=== PATIENT | female | born 1940 | race Caucasian/White ===

== ENCOUNTER 2023-05-09 09:29 | Inpatient (IN) | payer OTHER, SELFPAY ==
[2023-05-09] VITALS (11 sets, daily range): BP systolic 136–175; BP diastolic 55–82; PULSE 70–85; RESP 18–32; TEMP 35.9–36.9; O2SAT 93–99; BMI 39.3; BMI 38.8
--- NOTE | 2023-05-09 09:55 | EKG12_ITS ---
Test Reason : Blood Pressure : / mmHG Vent. Rate : 069 BPM Atrial Rate : 069 BPM P-R Int : 168 ms QRS Dur : 088 ms QT Int : 408 ms P-R-T Axes : 049 009 075 degrees QTc Int : 437 ms Normal sinus rhythm with sinus arrhythmia Normal ECG Confirmed by MITESH CHAVEZ, SILAS ([id number]), assignment editor AYALA REESE ([id number]) on 05/10/2023 9:13:48 AM Referred By: RACQUEL Confirmed By:SILAS SAGASTUME MD
--- NOTE | 2023-05-09 09:55 | RAD_ITS ---
STUDY: X-RAY CHEST REASON FOR EXAM: Female, 82 years old. Tachypnea, dyspnea, bilateral rales and lymphedema TECHNIQUE: PA and lateral views of the chest. COMPARISON: Comparison is made with prior study dated November 13, 2016. FINDINGS: EKG electrodes are seen. There is a large left pleural effusion with atelectasis at the left lung base. There is shift of the heart and mediastinum towards the right side of midline. Normal size heart. Normal mediastinum and george. Normal visualized pulmonary arteries. Normal visualized aortic arch and descending thoracic aorta. There are diffuse degenerative changes of the visualized thoracic spine. Levoscoliosis of the thoracic lumbar spine. Normal visualized ribs, clavicles, and shoulders. There is no demonstrated abnormality of the visualized soft tissue structures of the upper abdomen. RAD/Chest PA and Lateral IMPRESSION: Large left pleural effusion with shift of the heart and mediastinum towards the right hemithorax. Electronically Signed: Geovanny Davis MD at 11:00 EDT ,
--- NOTE | 2023-05-09 09:56 | EDS_ITS ---
HPI History of Present Illness Chief Complaint: Shortness of Breath Informant: patient, spouse/S.O. and family Onset/Context/Timing Onset: Weeks (one) Context: sudden Timing: Continuous and Waxes and wanes Quality: Positive for Dyspnea on exertion, Orthopnea and Wheezing; Negative for PND Current Severity: Mild Maximum Severity: Severe Worsened by: Exertion and Lying flat Relieved by: Nothing Associated Symptoms cough; Negative for rhinorrhea, post nasal drip, ear pain, fever, sore throat, subjective, chills, sweats, clear sputum, white sputum, yellow sputum or green sputum Chest Pain: Positive for None Narrative Narrative: Patient is a 82-year-old woman who is hard of hearing and not a good informant. Family is vague and even when asked specific questions she could not answer with any great detail. Her shortness of breath apparently started this past week. There is been audible wheezing. She has slept in a lazy boy for the last 10 months. She has had increased swelling for the past several weeks of her lower extremity. She cannot walk far without having to stop. She denies chest discomfort of any type. There is no history of PE or DVT. There is been no documented fever and she denies subjective fever or chills. She denies upper respiratory symptoms. She does have a history of hypothyroidism. Family raise concern that the thyroid medicine may not be working. There is been no weight loss. There is no complaint of headache, visual, ocular auditory symptoms. Patient denies GI symptoms. Patient denies urologic symptoms. Patient does have neuropathy of her feet. PE Risk Factors: Negative for Cancer, OCP + Smoking + > 35, Prior DVT or PE, Recent immobilization, Recent surgery or Recent travel Prior similar symptoms: No Recent Illness/Hospitalization: No PFSH PFSH Home Medications atenolol 25 mg tablet (Tenormin) 37.5 mg PO BID 08/13/16 [History Last Taken 11/15/16 05:00] clorazepate dipotassium 7.5 mg tablet 0.5 tab PO QHS PRN Sleep 08/13/16 [History Last Taken 11/15/16 05:00] hydrochlorothiazide 12.5 mg capsule 12.5 mg PO DAILY 08/13/16 [History Last Taken Unknown] levothyroxine 75 mcg tablet (Levoxyl) 75 mcg PO MOTUTHFRSA 08/13/16 [History Last Taken Unknown] nifedipine 30 mg tablet,extended release 24 hr 30 mg PO QHS 08/13/16 [History Last Taken Unknown] nifedipine 60 mg tablet,extended release 24 hr 60 mg PO DAILY 08/13/16 [History Last Taken 11/15/16 05:00 60 mg] nortriptyline 25 mg capsule 25 mg PO QHS 08/13/16 [History Last Taken Unknown] nystatin 100,000 unit/gram topical powder (Nyamyc) 1 applic topical PRN PRN SKIN IRRITATION 08/13/16 [History Last Taken Unknown] albuterol sulfate 90 mcg/actuation aerosol inhaler (ProAir HFA) 2 puff inhalation Q6H PRN PRN Asthma 11/12/16 [History Last Taken Unknown] oxycodone-acetaminophen 5 mg-325 mg tablet 1 tab PO Q4H PRN PRN Pain ##30 11/15/16 [Rx Last Taken Unknown] potassium chloride 10 mEq tablet,extended release(part/cryst) 10 meq PO UD 11/15/16 [History Last Taken 11/15/16 05:00] tamsulosin 0.4 mg capsule 0.4 mg PO DAILY@1730 ##14 11/16/16 [Rx Last Taken Unknown] Allergy/AdvReac Type Severity Reaction Status Date / Time amlodipine Allergy TACHYCARDIA Verified 11/12/16 09:59 AND HYPERTENSION losartan Allergy Swelling Verified 11/12/16 09:59 metoprolol Allergy Swelling Verified 11/12/16 09:59 Penicillins [PCN] Allergy Unknown Verified 11/12/16 09:59 diltiazem [From Cardizem] AdvReac Unknown Verified 11/12/16 09:59 olmesartan [From Benicar] AdvReac Unknown Verified 11/12/16 09:59 verapamil AdvReac Unknown Verified 11/12/16 09:59 Social History (Updated 05/09/23 @ 10:[address] Heath Chin MD) household members: spouse and family Smoking Status: Never smoker substance use type: does not use ROS ROS ED Constitutional Constitutional ED: Denies chills, fever(s), sweats or weight loss Eyes Eyes: Denies blurry vision, change in vision or diplopia ENT ENT ED: Denies ear pain, rhinorrhea or sore throat Cardiovascular Cardiovascular: Reports orthopnea; Denies chest pain, palpitations, paroxysmal nocturnal dyspnea or racing heartbeat Respiratory/Chest Respiratory/Chest: Reports cough, dyspnea, dyspnea on exertion and orthopnea; Denies paroxysmal nocturnal dyspnea or sputum Gastrointestinal Gastrointestinal: Denies abdominal pain, constipation, diarrhea, melena, nausea or vomiting Genitourinary Genitourinary ED: Denies dysuria, hematuria or urinary frequency Musculoskeletal Musculoskeletal: Denies arthralgias, back pain, myalgias or neck pain Integumentary Denies rash Neurologic Neurologic: Reports other Details: Peripheral neuropathy of lower extremity ; Denies headache(s), paresthesias or weakness Psychiatric Psychiatric: Reports anxiety and depression Endocrine Endocrinology: Denies cold intolerance Hematologic/Lymphatic Hematologic/Lymphatic: Denies easy bleeding or easy bruising EXAM Physical Exam Const Vital Signs: 05/09/23 09:30 05/09/23 09:42 05/09/23 09:42 Temperature 96.7 F L 98.5 F Temperature Source Temporal Temporal Pulse Rate 74 73 71 Respiratory Rate 20 H 30 H 30 H Respiratory Effort Respiratory Pattern Blood Pressure 156/55 H 175/82 H 175/82 H Blood Pressure Mean 88 113 113 Pulse Ox 95 95 95 Oxygen Delivery Method Room Air Room Air Room Air 05/09/23 10:11 05/09/23 10:12 05/09/23 11:21 Temperature Temperature Source Pulse Rate 70 78 Respiratory Rate 22 H 26 H Respiratory Effort Short of Breath Respiratory Pattern Tachypnea Blood Pressure 153/67 H 162/70 H Blood Pressure Mean 95 100 Pulse Ox 97 94 Oxygen Delivery Method Room Air Room Air Room Air Positive well nourished, well developed and obese Constitutional Narrative: Patient is tachypneic. Her respiratory rate increases with conversation. There may be slight use of accessory muscles with conversation. General Appearance ED: well developed and pallor Nutritional Appearance: obese HEENT Reports moist mucous membranes HEENT Narrative: Head is normocephalic. Ears normal. Nares patent. Posterior pharynx is normal. atraumatic Eyes PERRL and EOMs intact bilaterally General Eye ED: Negative for pale conjunctiva or scleral icterus Neck no lymphadenopathy, supple, no meningeal signs and no JVD Resp No normal respiratory effort and No clear to auscultation bilaterally Auscultation: rales right mid and lower and left lower and diminished lung sounds; Negative for rhonchi or wheezes Cardio regular rate, regular rhythm, S1 normal heart sound, S2 normal heart sound and no murmurs GI non-tender, non-distended and no masses Auscultation: normoactive bowel sounds Back/Spine no CVA tenderness and normal to inspection General Back: Negative for tenderness Extremity Negative for normal to inspection Extremity Narrative: Tenderness lower extremity exam to neuropathy. General Extremety ED: Yes edema and tenderness General Extremity: edema Neuro oriented x3, CN's II-XII intact bilaterally and no sensory deficits noted Neuro Narrative: Hard of hearing Ximena Coma Scale: document GCS findings Spontaneous Obeys Commands Oriented 15 Sensorium / Orientation: alert, oriented to person, oriented to place and oriented to time Speech: speech normal Psych Mood & Affect: depressed Skin no wounds and skin turgor normal General Skin Exam: pallor; Negative for jaundice Lesions: no lesions Rashes: no rashes MDM MDM MDM Narrative Medical decision making narrative: With shortness of breath over the past week, orthopnea, pedal edema and bilateral rales need to evaluate for cardiac ischemia and congestive heart failure. Also need to evaluate for exacerbation of hypothyroidism. The swelling of lower extremity exam a be due to the nifedipine which is a known nilam e effect. Since patient appears pale will obtain CBC to assess H&H as well as white count. Lab Data Attestation: I reviewed the patient's lab results. Lab results narrative: CBC is unremarkable. Patient is not anemic basic metabolic panel is remarkable for hyponatremia. Last sodium obtained was 2017. BUN and creatinine are normal. Transaminases are normal. BNP is slightly elevated 133.5. Labs: Laboratory Results - last 24 hr 05/09/23 09:55 WBC 6.7 RBC 5.41 H Hgb 15.4 H Hct 45.4 MCV 83.9 MCH 28.5 MCHC 33.9 RDW Std Deviation 39.3 RDW Coeff of Mariaelena 12.8 Plt Count 367 MPV 8.5 Immature Gran % (Auto) 0.400 Neut % (Auto) 63.4 Lymph % (Auto) 10.3 L Cole % (Auto) 21.6 H Eos % (Auto) 3.0 Baso % (Auto) 1.3 H Absolute Neuts (auto) 4.3 Absolute Lymphs (auto) 0.69 L Nucleated RBC % 0 Sodium 126 L Potassium 4.2 Chloride 95 L Carbon Dioxide 25.0 Anion Gap 6 BUN 12 Creatinine 0.88 Estim Creat Clear Calc 36.62 Est GFR (MDRD) Af Amer 79 Est GFR (MDRD) Non-Af 65 BUN/Creatinine Ratio 13.6 Glucose 99 Calcium 8.7 Total Bilirubin 0.60 AST 20 ALT 30 Alkaline Phosphatase 101 Troponin I High Sens 13 B-Natriuretic Peptide 133.5 H Total Protein 7.5 Albumin 2.7 L Globulin 4.8 H Albumin/Globulin Ratio 0.6 L TSH 2.99 Radiography Chest X-Ray - ED: 2 View and Read by ED Physician (Patient has a large left pleural effusion. Suspect this is the cause of her dyspnea. This will need worked up. There appears to be a shift of the heart to the right because the left pleural effusion is so large. This was independently reviewed and interpreted by me. Need to evaluate for possibl) Diagnostic Testing: Clinical Impression(s) from Imaging Studies Chest X-Ray 05/09/23 09:55 IMPRESSION: Large left pleural effusion with shift of the heart and mediastinum towards the right hemithorax. Electronically Signed: Geovanny Davis MD at 11:00 EDT , EKG Initial EKG: Attestation: I personally reviewed and interpreted this EKG as follows: Interpretation: Sinus Rhythm (Rate is 69. There is sinus variation. The EKG is otherwise unremarkable. [place] interval is under 68 ms per cures duration 88 ms. QT duration 408 ms. 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 They were informed of the laboratory results and chest x-ray results and need for thoracentesis and evaluation of the fluid. Since patient has conversational dyspnea with use of accessory muscles unable to walk more than 5 feet hospitalist been paged) Discharge Plan Dx/Rx/DC Orders Clinical Impression: Large pleural effusion, Hypertension, Hypothyroidism, Neuropathy, Acute dyspnea, Lymphedema of both lower extremities Disposition Disposition: Acute Care Hospital [facility]
[2023-05-09 10:03] LABS: Absolute Lymphocyte Count 0.69 X10^3/uL (0.83-4.51); Absolute Neutrophil Count 4.3 X10^3/uL (2.0-7.7); Basophil# 0.09 X10^3/uL; Basophil% 1.3 % (0-1); Hematocrit 45.4 % (37-47); Hemoglobin 15.4 g/dL (12.0-15.0); Lymphocyte # 0.69 X10^3/ul (0.83-4.51); Lymphocyte % 10.3 % (19-41); Mean Corp Hgb Conc 33.9 g/dL (32-36); Mean Corpuscular Hgb 28.5 pg (27.0-32.0); Mean Corpuscular Volume 83.9 fL (81-99); Mean Platelet Vol. 8.5 fl (6.2-12.0); Monocyte# 1.45 X10^3/uL; Monocyte% 21.6 % (0-10); NRBC Flagged by Analyzer 0 % (0-5); Neutrophil # 4.26 X10^3/uL (2.7-7.7); Neutrophil % 63.4 % (47-70); Platelet Count 367 K/mm3 (150-450); RBC Distribution Width CV 12.8 % (11.6-14.6); RBC Distribution Width SD 39.3 fl (35.1-43.9); Red Blood Count 5.41 M/mm3 (4.2-5.4); White Blood Count 6.7 K/mm3 (4.4-11.0)
[2023-05-09 10:23] LABS: BNP,B-Type NATRIURETIC PEPTIDE 133.5 pg/mL (0-100)
[2023-05-09 10:28] LABS: ALB/GLOB Ratio 0.6 RATIO (0.9-2.4); AST(SGOT) 20 U/L (15-37); Alanine Aminotransfer ALT/SGPT 30 U/L (13-56); Albumin, Serum 2.7 g/dL (3.2-5.0); Alkaline Phosphatase 101 U/L (45-117); Anion Gap 6 (5-15); BUN 12 mg/dL (7-18); BUN/Creat Ratio 13.6 RATIO (10-20); Calcium,Total 8.7 mg/dL (8.5-10.1); Chloride 95 mmol/L (98-107); Creatinine, Serum 0.88 mg/dL (0.55-1.02); EST Glomerular Filtration Rate 65 mL/min (>60); Est Glom Filt Rate - Afr Amer 79 mL/min (>60); Estimated Creatinine Clearance 36.62 ml/min; Globulin 4.8 g/dL (2.2-4.2); Glucose 99 mg/dL (74-106); Potassium 4.2 mmol/L (3.5-5.1); Protein, Total 7.5 g/dL (6.4-8.2); Sodium Level 126 mmol/L (136-145); Thyroid Stim Hormone (TSH) 2.99 uIU/mL (0.358-3.74); Troponin-I HS 13 pg/mL (3.0-54.0)
--- NOTE | 2023-05-09 12:12 | RAD_ITS ---
STUDY: X-RAY CHEST REASON FOR EXAM: Female, 82 years old. Status postthoracentesis TECHNIQUE: AP inspiration and expiration views were obtained. COMPARISON: Comparison is made with prior study done earlier today. FINDINGS: The patient is status post left thoracentesis. There is no evidence of pneumothorax. Persistent infiltration in the left lower lobe. RAD/Chest Insp/Exp 2 View IMPRESSION: Status post left thoracentesis. No evidence of pneumothorax. Electronically Signed: Geovanny Davis MD at 13:45 EDT ,
--- NOTE | 2023-05-09 12:21 | PCM.HP.STD ---
HPI - General General Date of Admission: 05/09/23 Date of Service: 05/09/23 Chief Complaint: Shortness of breath HPI Narrative RUI PATTERSON, is a 82 F who presents who presented with shortness of breath. Patient past medical history is significant for right breast CA for which patient underwent right upper quadrant lumpectomy with subsequent adjuvant chemo/radiation therapy in 2016, who has since remained in remission who presented with shortness of breath. Per patient and family patient did experience flulike symptoms almost a month prior to her admission. Her shortness of breath however started 5 days prior to her being admitted. Patient has had difficulty laying flat. Did experience some chills but there was no fever. In view of worsening symptoms patient presented to the emergency department. Imaging studies obtained did show large left-sided pleural effusion with mediastinal shift. Interventional radiology contacted from the ED prior to patient being admitted for subsequent inpatient eval. [facility] Medical History (Updated 05/09/23 @ 12:[address] Syd Mendoza MD) Breast CA Home Medications atenolol 25 mg tablet (Tenormin) 37.5 mg PO BID 08/13/16 [History Last Taken 11/15/16 05:00] clorazepate dipotassium 7.5 mg tablet 0.5 tab PO QHS PRN Sleep 08/13/16 [History Last Taken 11/15/16 05:00] hydrochlorothiazide 12.5 mg capsule 12.5 mg PO DAILY 08/13/16 [History Last Taken Unknown] levothyroxine 75 mcg tablet (Levoxyl) 75 mcg PO MOTUTHFRSA 08/13/16 [History Last Taken Unknown] nifedipine 30 mg tablet,extended release 24 hr 30 mg PO QHS 08/13/16 [History Last Taken Unknown] nifedipine 60 mg tablet,extended release 24 hr 60 mg PO DAILY 08/13/16 [History Last Taken 11/15/16 05:00 60 mg] nortriptyline 25 mg capsule 25 mg PO QHS 08/13/16 [History Last Taken Unknown] nystatin 100,000 unit/gram topical powder (Nyamyc) 1 applic topical PRN PRN SKIN IRRITATION 08/13/16 [History Last Taken Unknown] albuterol sulfate 90 mcg/actuation aerosol inhaler (ProAir HFA) 2 puff inhalation Q6H PRN PRN Asthma 11/12/16 [History Last Taken Unknown] oxycodone-acetaminophen 5 mg-325 mg tablet 1 tab PO Q4H PRN PRN Pain ##30 11/15/16 [Rx Last Taken Unknown] potassium chloride 10 mEq tablet,extended release(part/cryst) 10 meq PO UD 11/15/16 [History Last Taken 11/15/16 05:00] tamsulosin 0.4 mg capsule 0.4 mg PO DAILY@1730 ##14 11/16/16 [Rx Last Taken Unknown] Allergy/AdvReac Type Severity Reaction Status Date / Time amlodipine Allergy TACHYCARDIA Verified 11/12/16 09:59 AND HYPERTENSION losartan Allergy Swelling Verified 11/12/16 09:59 metoprolol Allergy Swelling Verified 11/12/16 09:59 Penicillins [PCN] Allergy Unknown Verified 11/12/16 09:59 diltiazem [From Cardizem] AdvReac Unknown Verified 11/12/16 09:59 olmesartan [From Benicar] AdvReac Unknown Verified 11/12/16 09:59 verapamil AdvReac Unknown Verified 11/12/16 09:59 Surgical History Status post right breast lumpectomy Social History household members: spouse and family Smoking Status: Never smoker substance use type: does not use ROS ROS Narrative GENERAL: chills, HEENT: denies headache, sinus congestion, RESPIRATORY: shortness of breath, dyspnea on exertion CARDIAC: denies chest pain, palpitations, orthopnea, GASTROINTESTINAL: denies abdominal pain, nausea, GENITOURINARY: denies dysuria, urgency, frequency, EXTREMITY: denies swelling MUSCULOSKELETAL: denies current joint pain or tenderness NEUROLOGIC: denies focal numbness, weakness, tingling HEMATOLOGIC: denies easy bruising and/or hemorrhage INTEGUMENT: denies rashes PSYCHIATRIC: denies suicidal or homicidal ideation Vital Signs Vital Signs Vital Signs: 05/09/23 09:30 05/09/23 09:42 05/09/23 09:42 Temperature 96.7 F L 98.5 F Temperature Source Temporal Temporal Pulse Rate 74 73 71 Respiratory Rate 20 H 30 H 30 H Respiratory Effort Respiratory Pattern Blood Pressure 156/55 H 175/82 H 175/82 H Blood Pressure Mean 88 113 113 Pulse Ox 95 95 95 Oxygen Delivery Method Room Air Room Air Room Air 05/09/23 10:11 05/09/23 10:12 05/09/23 11:21 Temperature Temperature Source Pulse Rate 70 78 Respiratory Rate 22 H 26 H Respiratory Effort Short of Breath Respiratory Pattern Tachypnea Blood Pressure 153/67 H 162/70 H Blood Pressure Mean 95 100 Pulse Ox 97 94 Oxygen Delivery Method Room Air Room Air Room Air 05/09/23 12:20 Temperature 98 F Temperature Source Temporal Pulse Rate 85 Respiratory Rate 32 H Respiratory Effort Respiratory Pattern Blood Pressure 154/72 H Blood Pressure Mean 99 Pulse Ox 93 Oxygen Delivery Method Room Air Weight Weight: 91.3 kg Body Mass Index (BMI) 39.3 Physical Exam Narrative GENERAL: Dyspneic at rest HEENT: Atraumatic; normocephalic EYES; Anicteric, Normal Conjunctiva NECK; supple, normal thyroid, RESPIRATORY: Diminished to auscultation CARDIOVASCULAR: Regular S1 S2, GI: soft, normoactive bowel sounds, : No Renal angle tenderness; EXTREMITIES: edema, no clubbing, MUSCULOSKELETAL: no muscle wasting NEURO: Awake; no lateralizing signs. SKIN: No Rash PSYCH; Flat affect Results Lab / Micro Data 05/09/23 09:55 05/09/23 09:55 Labs: Laboratory Results - last 24 hr 05/09/23 09:55: WBC 6.7, RBC 5.41 H, Hgb 15.4 H, Hct 45.4, MCV 83.9, MCH 28.5, MCHC 33.9, RDW Std Deviation 39.3, RDW Coeff of Mariaelena 12.8, Plt Count 367, MPV 8.5, Immature Gran % (Auto) 0.400, Neut % (Auto) 63.4, Lymph % (Auto) 10.3 L, [place] % (Auto) 21.6 H, Eos % (Auto) 3.0, Baso % (Auto) 1.3 H, Absolute Neuts (auto) 4.3, Absolute Lymphs (auto) 0.69 L, Nucleated RBC % 0, Sodium 126 L, Potassium 4.2, Chloride 95 L, Carbon Dioxide 25.0, Anion Gap 6, BUN 12, Creatinine 0.88, Estim Creat Clear Calc 36.62, Est GFR (MDRD) Af Amer 79, Est GFR (MDRD) Non-Af 65, BUN/Creatinine Ratio 13.6, Glucose 99, Calcium 8.7, Total Bilirubin 0.60, AST 20, ALT 30, Alkaline Phosphatase 101, Troponin I High Sens 13, B-Natriuretic Peptide 133.5 H, Total Protein 7.5, Albumin 2.7 L, Globulin 4.8 H, Albumin/Globulin Ratio 0.6 L, TSH 2.99 Radiology Impression Chest X-Ray 05/09/23 09:55 IMPRESSION: Large left pleural effusion with shift of the heart and mediastinum towards the right hemithorax. Electronically Signed: Geovanny Davis MD at 11:00 EDT , Assessment & Plan Assessment/Plan (1) Large pleural effusion: PLAN: Plan Patient is an 82-year-old female presenting with shortness of breath found to have large left-sided pleural effusion with mediastinal shift 1. Acute dyspnea ? Secondary to large left-sided pleural effusion with mediastinal shift. Patient has been admitted to a monitored bed consult placed to interventional radiology Case discussed with Dr. Jaime plans for patient to undergo both diagnostic as well as therapeutic thoracocentesis with fluid assay sent for analysis including LDH, cell count, cytology, and culture. Next 2. Hypothyroidism - Patient is on levothyroxine home dose continued 3. Hypertension - Blood pressure controlled, home medications continued with dose adjustment as needed 4. History of right breast CA ? Status postlumpectomy with subsequent chemo and radiation therapy 5. Depression ? Patient is on nortriptyline at bedtime 6. Class II obesity with BMI of 39.3 ? Complicating care weight loss advised 7. DVT prophylaxis ? SC Lovenox Time spent in the patient's overall evaluation,decision-making process, review of diagnostic data, adjustment of management, discussion with other providers, nursing nursing and ancillary staff involved in patient's care documentation, 75 Minutes Advance planning; did discuss with the patient and family regarding advanced directives as well as CODE STATUS. Did explain the various scenarios involved ( FULL CODE, DNR CCA, DNR CCA with no intubation, and DNR CC and what each meant) patient elected to remain full code with CPR and intubation if warranted. Order was placed. Time spent on discussion 18 minutes. Charges/Coding Visit Charges Inpatient E&M: 54211 Init Hosp L3 Procedures Hospitalists Procedures: 29496 Advncd Care Plan 30 Min
--- NOTE | 2023-05-09 12:39 | US_ITS ---
PROCEDURE: ULTRASOUND GUIDED THORACENTESIS. DATE: May 09, 2023. INDICATION: Female, 82 years old. Left pleural effusion. PHYSICIAN: Geovanny Davis M.D. PROCEDURE: The risks, benefits, and alternatives to the procedure were explained to the patient. The specific risks of bleeding, infection, and pneumothorax requiring chest tube insertion were discussed and accepted. Written informed consent was obtained. Ultrasonographic evaluation of the lower pleural space was carried out. An adequate pocket was identified. The patient was placed in the sitting, upright position. The overlying skin was prepped and draped in sterile fashion. 1% lidocaine was administered subcutaneously for local anesthesia. Under ultrasound guidance, a 5 [place] thoracentesis needle/catheter system was advanced into the left posterior lower pleural fluid collection. Approximately 1050 mL of ramses-colored fluid was drained. The catheter was removed, and a sterile dressing was applied. A specimen was collected and sent to the laboratory for analysis, as requested by the referring clinician. The patient tolerated the procedure well. A chest x-ray was ordered. US/Thoracentesis W US IMPRESSION: Ultrasound-guided left thoracentesis. Electronically Signed: Geovanny Davis MD at 13:46 EDT ,
--- NOTE | 2023-05-09 13:03 | NURSING ---
123 KITTOE LARGE LEFT PLEURAL EFFUSION, DYSPNEA
[2023-05-09] MEDS: Lidocaine 2% (20 ml mdv) 20 ML Vial INFILT (13:07)
[2023-05-09 13:15] LABS: Prothrombin Time (Protime)PT. 13.3 SECONDS (11.7-14.9)
[2023-05-09 13:48] LABS: Cytology, Body Fluid / CSF SEE PATHOLOGY REPORT
[2023-05-09 14:05] LABS: LDH 145 U/L (84-246)
[2023-05-09 14:08] LABS: Body Fluid Mononuclear WBC # 0.919 10^3/uL; Body Fluid Mononuclear WBC % 65.5 %; Body Fluid Polynuclear WBC # 0.483 10^3/uL; Body Fluid Polynuclear WBC % 34.5 %; White Blood Count/Body Fluid 1.402 10^3/uL
[2023-05-09 14:19] LABS: Red Cell Count/Body Fluid 1005 /mm3
[2023-05-09 14:20] LABS: Appearance/Body Fluid CLEAR; Auto B Fluid Analyzer BKGD Ct COUNTS W/IN LIMITS (W/IN LIMITS); Color/Body Fluid YELLOW; Source- Body Fluid THORACENTESIS
[2023-05-09 14:42] LABS: Lymphocytes 66 %; Monocytes 4 %; Neutrophil (Segs) 30 %
[2023-05-09 14:48] LABS: Body Fluid QC Type(s) BF1Q,BF2Q
[2023-05-09 16:15] LABS: Glucose, Body Fluid 104 mg/dL (40-70); LDH,Body Fluid 199 Units/l (Not Establ.); Protein, Body Fluid 4.2 g/dL (Not Establ.)
[2023-05-09] MEDS: NIFEdipine 60 MG Tablet PO (20:07)
[2023-05-09] MEDS: Nortriptyline 25 MG Capsule PO (20:08)
[2023-05-09] MEDS: Atenolol 25 MG Tablet 37.5 MG PO (20:08)
--- NOTE | 2023-05-10 | FLU_PTH ---
PATIENT: RUI PATTERSON LOC: [facility] U#:[id number] AGE/SX: 82/F ROOM: [facility] RE05/09/[address]: Dr. Syd Mendoza MD : [id number] BED: 1 DIS: 05/10/2023 SPEC #: [id number] RECD: 05/10/23 09:48 STATUS: CHACE REQ #: [id number] CRISTINA: 05/10/23 00:[address]: Syd Mendoza DEPT: CYTOLOGY RECD BY: Ramy Horn ENTERED: 05/10/23 09:49 SP TYPE: Fluid OTHR DR: MD Dr. Bobby Narvaez DO Dr. Lee Ann Baggott, MD Dr. Liza D Talampas, MD Dr. Tanmay Panchabhai, MD Christina Muller, PIPELINE CONTROLLER-C Tissues: THORACIC FLUID Procedures: Special Stain Group II Surgery Specimen Level IV Cytospin Fluid HEADER OPERATION: Ultrasound-guided thoracentesis PRE-OP DIAGNOSIS: Left pleural effusion TISSUE SUBMITTED: Thoracentesis fluid for cytology DIAGNOSIS CYTOLOGY Thoracentesis fluid for cytology (cytospin and cell block): Negative for malignant cells. AM:venkat 05/13/2023 CYTOLOGY STUDY Slides are reviewed. CYTOLOGY GROSS Received is 80 ml of yellow cloudy fluid labeled with the patient's name and and designated per the requisition as thoracentesis. Submitted for cytology preparation including cell block. / venkat 05/10/2023 TC:5 CPT: 59571, 69254
[2023-05-10 02:49] VITALS: BP 136/55; PULSE 73; RESP 18; TEMP 36.4; O2SAT 93
[2023-05-10 05:31] VITALS: BP 148/60; PULSE 84; RESP 20; TEMP 36.1; O2SAT 93
[2023-05-10] MEDS: Levothyroxine 75 MCG Tablet PO (05:33)
[2023-05-10 06:00] VITALS: BMI 38.7
[2023-05-10 06:32] LABS: Absolute Lymphocyte Count 0.85 X10^3/uL (0.83-4.51); Absolute Neutrophil Count 4.5 X10^3/uL (2.0-7.7); Basophil# 0.09 X10^3/uL; Basophil% 1.2 % (0-1); Eosinophil# 0.24 X10^3/uL; Eosinophils% 3.3 % (0-5); Hematocrit 44.1 % (37-47); Hemoglobin 14.8 g/dL (12.0-15.0); Lymphocyte # 0.85 X10^3/ul (0.83-4.51); Lymphocyte % 11.7 % (19-41); Mean Corp Hgb Conc 33.6 g/dL (32-36); Mean Corpuscular Hgb 28.5 pg (27.0-32.0); Mean Corpuscular Volume 84.8 fL (81-99); Mean Platelet Vol. 8.9 fl (6.2-12.0); Monocyte# 1.46 X10^3/uL; Monocyte% 20.2 % (0-10); NRBC Flagged by Analyzer 0 % (0-5); Neutrophil # 4.54 X10^3/uL (2.7-7.7); Neutrophil % 62.8 % (47-70); Platelet Count 372 K/mm3 (150-450); RBC Distribution Width CV 12.9 % (11.6-14.6); RBC Distribution Width SD 39.9 fl (35.1-43.9); White Blood Count 7.2 K/mm3 (4.4-11.0)
[2023-05-10 07:10] LABS: Anion Gap 6 (5-15); BUN 11 mg/dL (7-18); BUN/Creat Ratio 14.9 RATIO (10-20); Calcium,Total 8.2 mg/dL (8.5-10.1); Chloride 100 mmol/L (98-107); Creatinine, Serum 0.74 mg/dL (0.55-1.02); EST Glomerular Filtration Rate 80 mL/min (>60); Est Glom Filt Rate - Afr Amer 97 mL/min (>60); Estimated Creatinine Clearance 32.23 ml/min; Glucose 93 mg/dL (74-106); Magnesium 2.4 mg/dL (1.6-2.6); Phosphorus 2.9 mg/dL (2.5-4.9); Potassium 3.9 mmol/L (3.5-5.1); Sodium Level 131 mmol/L (136-145)
--- NOTE | 2023-05-10 08:22 | PCM.PN.HOSP ---
Reason for Visit Reason for Visit: Diagnoses Pleural effusion, not elsewhere classified (05/09/23) Subjective Subjective Patient underwent ultrasound-guided thoracocentesis by Dr. Davis on 05/10/2023 with approximately 1050 mL of ramses-colored fluid was drained. Objective Data Objective Data Vital Signs: Vital Signs Temp Pulse Resp BP Pulse Ox O2 Del Method 97.0 F L 84 20 H 148/60 H 93 Room Air 05/10/23 05:31 05/10/23 05:31 05/10/23 05:31 05/10/23 05:31 05/10/23 05:31 05/10/23 05:31 Oxygen Delivery Method [3] Room Air Oxygen Delivery Method [2] Room Air Oxygen Delivery Method [1 ( Room Air Initial Baseline)] Oxygen Delivery Method Room Air Weight: 89.9 kg Body Mass Index (BMI) 38.7 Intake & Output: Intake and Output for Last 24 Hours 05/08/23 05/09/23 05/10/23 23:59 23:59 23:59 Intake Total 240 / 240 Output Total 1050 / 1050 Balance -810 / -810 Lab / Micro Data 05/10/23 05:35 05/10/23 05:35 Labs: Laboratory Results - last 24 hr 05/09/23 09:55: WBC 6.7, RBC 5.41 H, Hgb 15.4 H, Hct 45.4, MCV 83.9, MCH 28.5, MCHC 33.9, RDW Std Deviation 39.3, RDW Coeff of Mariaelena 12.8, Plt Count 367, MPV 8.5, Immature Gran % (Auto) 0.400, Neut % (Auto) 63.4, Lymph % (Auto) 10.3 L, [place] % (Auto) 21.6 H, Eos % (Auto) 3.0, Baso % (Auto) 1.3 H, Absolute Neuts (auto) 4.3, Absolute Lymphs (auto) 0.69 L, Nucleated RBC % 0, PT 13.3, INR 1.0, APTT 39.0 H, Sodium 126 L, Potassium 4.2, Chloride 95 L, Carbon Dioxide 25.0, Anion Gap 6, BUN 12, Creatinine 0.88, Estim Creat Clear Calc 36.62, Est GFR (MDRD) Af Amer 79, Est GFR (MDRD) Non-Af 65, BUN/Creatinine Ratio 13.6, Glucose 99, Calcium 8.7, Total Bilirubin 0.60, AST 20, ALT 30, Alkaline Phosphatase 101, Lactate Dehydrogenase 145, Troponin I High Sens 13, B-Natriuretic Peptide 133.5 H, Total Protein 7.5, Albumin 2.7 L, Globulin 4.8 H, Albumin/Globulin Ratio 0.6 L, TSH 2.99 05/09/23 12:20: Fluid Glucose 104 H, Fluid Total Protein 4.2, Fluid LDH 199 05/09/23 : Fluid Source THORACENTESIS, Fluid Color YELLOW, Fluid Appearance CLEAR, Fluid WBC 1.402, Fluid RBC 1005, Fluid Tot Cell Count 1.410 H, Fld Polynuclear WBCs # 0.483, Fld Polynuclear WBCs % 34.5, Fluid Mononuclear WBCs 0.919, Fld Mononuclear WBCs % 65.5, Fluid Neutrophils 30, Fluid Lymphocytes 66, Fluid Monocytes 4, Fl Pathologist Comment May follow, Fluid Comment 2 SEE COMMENT 05/10/23 05:35: WBC 7.2, RBC 5.20, Hgb 14.8, Hct 44.1, MCV 84.8, MCH 28.5, MCHC 33.6, RDW Std Deviation 39.9, RDW Coeff of Mariaelena 12.9, Plt Count 372, MPV 8.9, Immature Gran % (Auto) 0.800, Neut % (Auto) 62.8, Lymph % (Auto) 11.7 L, [place] % (Auto) 20.2 H, Eos % (Auto) 3.3, Baso % (Auto) 1.2 H, Absolute Neuts (auto) 4.5, Absolute Lymphs (auto) 0.85, Nucleated RBC % 0, Sodium 131 L, Potassium 3.9, Chloride 100, Carbon Dioxide 25.0, Anion Gap 6, BUN 11, Creatinine 0.74, Estim Creat Clear Calc 32.23, Est GFR (MDRD) Af Amer 97, Est GFR (MDRD) Non-Af 80, BUN/Creatinine Ratio 14.9, Glucose 93, Calcium 8.2 L, Phosphorus 2.9, Magnesium 2.4 Micro: Microbiology 05/09/23 Unknown Fluid - Thoracentesis Fluid Gram Stain - Final Radiography Diagnostic Testing: Radiology Impression Chest X-Ray 05/09/23 09:55 IMPRESSION: Large left pleural effusion with shift of the heart and mediastinum towards the right hemithorax. Electronically Signed: Geovanny Davis MD at 11:00 EDT , Chest X-Ray 05/09/23 12:12 IMPRESSION: Status post left thoracentesis. No evidence of pneumothorax. Electronically Signed: Geovanny Davis MD at 13:45 EDT , Thoracentesis Ultrasound 05/09/23 12:39 IMPRESSION: Ultrasound-guided left thoracentesis. Electronically Signed: Geovanny Davis MD at 13:46 EDT , Physical Exam Narrative GENERAL: Dyspneic at rest HEENT: Atraumatic; normocephalic EYES; Anicteric, Normal Conjunctiva NECK; supple, normal thyroid, RESPIRATORY: Diminished to auscultation CARDIOVASCULAR: Regular S1 S2, GI: soft, normoactive bowel sounds, : No Renal angle tenderness; EXTREMITIES: edema, no clubbing, MUSCULOSKELETAL: no muscle wasting NEURO: Awake; no lateralizing signs. SKIN: No Rash PSYCH; Flat affect Assessment & Plan Assessment/Plan (1) Large pleural effusion: PLAN: Plan Patient is an 82-year-old female presenting with shortness of breath found to have large left-sided pleural effusion with mediastinal shift 1. Acute dyspnea ? Secondary to large left-sided pleural effusion with mediastinal shift. Patient has been admitted to a monitored bed consult placed to interventional radiology Case discussed with Dr. Jaime plans for patient to undergo both diagnostic as well as therapeutic thoracocentesis with fluid assay sent for analysis including LDH, cell count, cytology, and culture. -05/10/2023; Patient underwent ultrasound-guided thoracocentesis by Dr. Davis on 05/10/2023 with approximately 1050 mL of ramses-colored fluid was ? Plan is for patient to be discharged home with plans for patient to follow-up with pulmonary medicine within a week for results 2. Hypothyroidism - Patient is on levothyroxine home dose continued 3. Hypertension - Blood pressure controlled, home medications continued with dose adjustment as needed 4. History of right breast CA ? Status postlumpectomy with subsequent chemo and radiation therapy 5. Depression ? Patient is on nortriptyline at bedtime 6. Class II obesity with BMI of 39.3 ? Complicating care weight loss advised 7. DVT prophylaxis ? SC Lovenox Time spent in the patient's overall evaluation,decision-making process, review of diagnostic data, adjustment of management, discussion with other providers, nursing nursing and ancillary staff involved in patient's care documentation, 50 Minutes Charges/Coding Visit Charges Inpatient E&M: [id number] [facility] L3
[2023-05-10 09:22] VITALS: BP 139/57; PULSE 88; RESP 18; TEMP 36.8; O2SAT 95
--- NOTE | 2023-05-10 09:24 | EX.PCM.CONCC ---
Assessment & Plan Assessment/Plan (1) Large pleural effusion: PLAN: Plan RECOMMENDATIONS: 1. Obtain noncontrast chest CT and echocardiogram. 2. Perform ambulatory oximetry study prior to consideration for discharge home. 3. Await pleural fluid cytology and culture results. 4. The patient can follow-up in the pulmonary medicine clinic after discharge to review the finalized pleural fluid results. IMPRESSIONS: 1. Undifferentiated pleural effusion The patient presented to the hospital with progressive shortness of breath along with radiographic evidence of a large left-sided pleural effusion of unclear etiology and chronicity. She does have a remote history of breast CA, but has apparently been in remission for the last 6 years. She does not have any systemic signs or symptoms to suggest an occult infectious process. Therefore, we will need to rule out underlying malignancy, congestive heart failure or a systemic inflammatory condition. The patient did undergo an ultrasound-guided thoracentesis with 1 L of fluid removed. Per traditional Light's criteria, if at least one of the following three is fulfilled, the fluid would be considered an exudate: 1. Pleural fluid protein/serum protein ratio greater than 0.5 2. Pleural fluid LDH/serum LDH ratio greater than 0.6 3. Pleural fluid LDH greater than two thirds the upper limits of the laboratories normal serum LDH Based upon my review of the patient's pleural fluid analysis, along with serum LDH and total protein levels, the pleural fluid would be considered exudative in nature. At the present time, I would recommend that we obtain a CT chest along with an echocardiogram for further characterization. I would also recommend that the patient perform an ambulatory oximetry study to be evaluated for exertional hypoxemia. Once her testing is completed, provided that she does not demonstrate any hypoxemia, the patient could be scheduled next week in the pulmonary medicine clinic to discuss the results of her pleural fluid analysis. This note was generated with [employer] software. It may contain incorrect words, spelling, and punctuation that were not noted in checking the note before signing. HPI Consult Data Date of Consult: 05/10/23 HPI Narrative Reason for Consultation: Pleural effusion HPI Narrative: The patient is an 82-year-old female, with a history as outlined below, who presented to the emergency department on May 09 with progressive shortness of breath. The patient has an apparent history of obesity, hypothyroidism and right-sided breast CA status postlumpectomy. The patient has been in remission from a cancer perspective for the last 6 years. In addition to her dyspnea, the patient did report the presence of orthopnea and lower extremity edema. On presentation to the emergency department, the patient was noted to be afebrile hemodynamically stable. She was maintaining appropriate oxygen saturations on room air. Initial laboratory evaluation revealed no evidence of a leukocytosis. Chemistry profile was notable for a sodium of 126 and chloride of 95. BNP was mildly elevated at 133. Troponin was negative. TSH was within normal limits. Chest imaging demonstrated a large left-sided pleural effusion with mediastinal shift towards the right side. The patient subsequently underwent an ultrasound-guided thoracentesis, with just over 1 L of ramses-colored fluid removed from the left hemithorax. The patient was subsequently admitted to the hospital for further management. This morning, the patient did note symptom improvement in her dyspnea following the thoracentesis. She remained stable from a respiratory perspective on room air. [facility] Medical History (Updated 05/09/23 @ 12:[address] Syd Mendoza MD) Breast CA Home Medications atenolol 25 mg tablet (Tenormin) 37.5 mg PO BID 08/13/16 [History Last Taken 11/15/16 05:00] clorazepate dipotassium 7.5 mg tablet 0.5 tab PO QHS PRN Sleep 08/13/16 [History Last Taken 11/15/16 05:00] levothyroxine 75 mcg tablet (Levoxyl) 75 mcg PO MOTUTHFRSA 08/13/16 [History Last Taken Unknown] nifedipine 60 mg tablet,extended release 24 hr 60 mg PO BID heart 08/13/16 [History Last Taken 11/15/16 05:00 60 mg] nortriptyline 25 mg capsule 25 mg PO QHS 08/13/16 [History Last Taken Unknown] nystatin 100,000 unit/gram topical powder (Nyamyc) 1 applic topical PRN PRN SKIN IRRITATION 08/13/16 [History Last Taken Unknown] potassium chloride 10 mEq tablet,extended release(part/cryst) 10 meq PO UD suppliment 11/15/16 [History Last Taken 11/15/16 05:00] calcium carb,cit ER 600 mg-vit D3 12.5 mcg (500 unit) tablet,ext.rel (Citracal-D3 Slow Release) 1 tab PO DAILY suppliment 05/09/23 [History Last Taken Unknown] cholecalciferol (vitamin D3) 50 mcg (2,000 unit) tablet (Vitamin D3) 2,000 unit PO DAILY suppliment 05/09/23 [History Last Taken Unknown] spironolactone 25 mg tablet 25 mg PO .COMPLEX diuretic 05/09/23 [History Last Taken 05/08/23] wfos-dexolrodx-nxkgpgmlufnfc-aldioxa topical powder 1 ea topical QHS PRN PRN rash under breasts 05/09/23 [History Last Taken Unknown] transfor factor See Rx Instructions PO DAILY suppliment 05/09/23 [History Last Taken 05/09/23] Allergy/AdvReac Type Severity Reaction Status Date / Time amlodipine Allergy TACHYCARDIA Verified 05/09/23 13:49 AND HYPERTENSION losartan Allergy Swelling Verified 05/09/23 13:49 metoprolol Allergy Swelling Verified 05/09/23 13:49 Penicillins [PCN] Allergy Itching Verified 05/09/23 13:49 diltiazem [From Cardizem] AdvReac Unknown Verified 05/09/23 13:49 olmesartan [From Benicar] AdvReac Unknown Verified 05/09/23 13:49 verapamil AdvReac Unknown Verified 05/09/23 13:49 Surgical History Status post right breast lumpectomy Social History (Updated 05/09/23 @ 13:36 by Erica Amaro) household members: spouse and family housing: house Smoking Status: Never smoker substance use type: does not use ROS ROS Narrative 10 systems were reviewed with pertinent positives as noted in the HPI above. Physical Exam Const alert and no apparent distress Constitutional Narrative: Obese. Sitting upright in bed. is present at the bedside. General Appearance: cooperative HEENT normocephalic and head/scalp atraumatic Eyes PERRL, EOMs intact bilaterally and conjunctivae normal Neck supple General: trachea midline Chest inspection of chest normal Resp normal respiratory effort Resp Narrative: There is diminished air movement in the left lung base with dullness to percussion. Cardio regular rate and regular rhythm GI normal to inspection, nondistended, normoactive bowel sounds Extremity General Extremity: Negative for clubbing Skin no rashes or lesions noted Neuro oriented x3, CN's II-XII intact bilaterally and moves all extremities Psych cooperative and affect normal Lab / Micro Data 05/10/23 05:35 05/10/23 05:35 Labs: Laboratory Results - last 24 hr 05/09/23 09:55: WBC 6.7, RBC 5.41 H, Hgb 15.4 H, Hct 45.4, MCV 83.9, MCH 28.5, MCHC 33.9, RDW Std Deviation 39.3, RDW Coeff of Mariaelena 12.8, Plt Count 367, MPV 8.5, Immature Gran % (Auto) 0.400, Neut % (Auto) 63.4, Lymph % (Auto) 10.3 L, [place] % (Auto) 21.6 H, Eos % (Auto) 3.0, Baso % (Auto) 1.3 H, Absolute Neuts (auto) 4.3, Absolute Lymphs (auto) 0.69 L, Nucleated RBC % 0, PT 13.3, INR 1.0, APTT 39.0 H, Sodium 126 L, Potassium 4.2, Chloride 95 L, Carbon Dioxide 25.0, Anion Gap 6, BUN 12, Creatinine 0.88, Estim Creat Clear Calc 36.62, Est GFR (MDRD) Af Amer 79, Est GFR (MDRD) Non-Af 65, BUN/Creatinine Ratio 13.6, Glucose 99, Calcium 8.7, Total Bilirubin 0.60, AST 20, ALT 30, Alkaline Phosphatase 101, Lactate Dehydrogenase 145, Troponin I High Sens 13, B-Natriuretic Peptide 133.5 H, Total Protein 7.5, Albumin 2.7 L, Globulin 4.8 H, Albumin/Globulin Ratio 0.6 L, TSH 2.99 05/09/23 12:20: Fluid Glucose 104 H, Fluid Total Protein 4.2, Fluid LDH 199 05/09/23 : Fluid Source THORACENTESIS, Fluid Color YELLOW, Fluid Appearance CLEAR, Fluid WBC 1.402, Fluid RBC 1005, Fluid Tot Cell Count 1.410 H, Fld Polynuclear WBCs # 0.483, Fld Polynuclear WBCs % 34.5, Fluid Mononuclear WBCs 0.919, Fld Mononuclear WBCs % 65.5, Fluid Neutrophils 30, Fluid Lymphocytes 66, Fluid Monocytes 4, Fl Pathologist Comment May follow, Fluid Comment 2 SEE COMMENT 05/10/23 05:35: WBC 7.2, RBC 5.20, Hgb 14.8, Hct 44.1, MCV 84.8, MCH 28.5, MCHC 33.6, RDW Std Deviation 39.9, RDW Coeff of Mariaelena 12.9, Plt Count 372, MPV 8.9, Immature Gran % (Auto) 0.800, Neut % (Auto) 62.8, Lymph % (Auto) 11.7 L, [place] % (Auto) 20.2 H, Eos % (Auto) 3.3, Baso % (Auto) 1.2 H, Absolute Neuts (auto) 4.5, Absolute Lymphs (auto) 0.85, Nucleated RBC % 0, Sodium 131 L, Potassium 3.9, Chloride 100, Carbon Dioxide 25.0, Anion Gap 6, BUN 11, Creatinine 0.74, Estim Creat Clear Calc 32.23, Est GFR (MDRD) Af Amer 97, Est GFR (MDRD) Non-Af 80, BUN/Creatinine Ratio 14.9, Glucose 93, Calcium 8.2 L, Phosphorus 2.9, Magnesium 2.4 Micro: Microbiology 05/09/23 Unknown Fluid - Thoracentesis Fluid Gram Stain - Final Radiology Impression Chest X-Ray 05/09/23 09:55 IMPRESSION: Large left pleural effusion with shift of the heart and mediastinum towards the right hemithorax. Electronically Signed: Geovanny Davis MD at 11:00 EDT , Chest X-Ray 05/09/23 12:12 IMPRESSION: Status post left thoracentesis. No evidence of pneumothorax. Electronically Signed: Geovanny Davis MD at 13:45 EDT , Thoracentesis Ultrasound 05/09/23 12:39 IMPRESSION: Ultrasound-guided left thoracentesis. Electronically Signed: Geovanny Davis MD at 13:46 EDT , Charges/Coding Visit Charges Inpatient E&M: 90539 Init Hosp L3
--- NOTE | 2023-05-10 09:27 | CT_ITS ---
STUDY: CT CHEST WITHOUT CONTRAST REASON FOR EXAM: Female, 82 years old. Pleural Effusion RADIATION DOSAGE (If Supplied By Facility): CTDIvol = ( 18.60 ) mGy, DLP = ( 464.62 ) mGycm TECHNIQUE: Transaxial imaging was performed without the administration of intravenous contrast material. Multiplanar coronal and sagittal images were reformatted. Individualized dose optimization techniques were used for this CT. COMPARISON: Comparison made with prior chest regressed dated May 09, 2023. FINDINGS: CHEST There is a small residual left pleural effusion. Minimal fluid is seen in the left major fissure. There is evidence of volume loss and infiltration in the left lower lobe. There is a 1 cm x 1.2 cm spiculated nodule in the anterior aspect of the left upper lobe as seen on axial image #19 and coronal image #108. Findings suggestive of a right apical thickening. There are calcifications of the coronary arteries. Minimal anterior pericardial thickening. There are multiple small lymph nodes within the mediastinum, which are normal in size and morphology most compatible with reactive lymph hyperplasia. Normal hilar regions. Normal unenhanced pulmonary arteries. There is atherosclerotic calcification of the aortic arch with tortuosity and elongation of the aortic arch and descending thoracic aorta. There are multi-level degenerative changes of the thoracic spine. Increased kyphosis. There is no demonstrated abnormality of the visualized upper abdomen. CT/Chest without Contrast IMPRESSION: Small residual left pleural effusion with infiltration and/or atelectasis at the left lung base. 1 cm x 1.2 cm spiculated nodule in the anterior aspect of the left upper lobe as seen on axial image #19 and coronal image #108. Electronically Signed: Geovanny Davis MD at 10:39 EDT ,
[2023-05-10] MEDS: Cholecalciferol (VIT D3) 25 MCG TABLET (1,000 UNITS) 50 MCG PO (09:28)
[2023-05-10] MEDS: Calcium Carb/Vitamin D 1 TABLET Tablet PO (09:28)
[2023-05-10] MEDS: Atenolol 25 MG Tablet 37.5 MG PO (09:28)
[2023-05-10] MEDS: NIFEdipine 60 MG Tablet PO (09:28)
--- NOTE | 2023-05-10 09:32 | ECHOCS_ITS ---
Reason For Study: Congenital Heart Disease Procedure This was a 2D Doppler, Color Flow transthoracic echocardiogram. The study was technically difficult. Contrast injection was performed. Exam performed portable in patient room. Left Ventricle Normal LV size. Left ventricular systolic function is normal. The estimated ejection fraction is 60 %. Stage 1 diastolic dysfunction. No regional wall motion abnormalities noted. Right Ventricle Normal RV size. Normal systolic function. Atria Normal left atrium. Normal right atrium. Mitral Valve Normal mitral valve. Tricuspid Valve Normal tricuspid valve. Mild to moderate (1-2+) tricuspid valve insufficiency. Pulmonary artery systolic pressure is 37 mmHg. Aortic Valve Normal aortic valve. Mild (1+) eccentric aortic valve insufficiency. Pulmonic Valve Normal pulmonic valve. Great Vessels Normal aortic root. The pulmonary artery is normal size. Normal inferior vena cava. Pericardium/Pleural No pericardial effusion. Medication Diluted definity 2ml given slow IV push to enhance endocardial definition. MMode/2D Measurements & Calculations LVIDd: 3.9 cm IVSd: 0.93 cm Ao root diam: 3.4 cm LVIDs: 2.8 cm LVPWd: 0.82 cm LA dimension: 3.7 cm RVDd: 3.5 cm FS: 26.3 % LAV(MOD-bp): 66.9 ml LVAd ap4: 27.3 cm2 SV(MOD-sp4): 55.5 ml LAV(MOD-bp) Indexed: 36.0 ml/m2 LVLd ap4: 7.3 cm LAV(MOD-sp2): 70.6 ml EDV(MOD-sp4): 81.9 ml LAV(MOD-sp4): 65.6 ml EDV(sp4-el): 86.9 ml LVAs ap4: 13.9 cm2 LVLs ap4: 6.0 cm ESV(MOD-sp4): 26.4 ml ESV(sp4-el): 27.2 ml EF(MOD-sp4): 67.8 % EF(sp4-el): 68.7 % SV(sp4-el): 59.7 ml LA A4 area: 21.6 cm2 RA A4 area: 14.8 cm2 Time Measurements MV dec time: 0.21 sec Doppler Measurements & Calculations MV E max jose alfredo: 115.5 cm/sec Lat Peak E' Jose Alfredo: 10.5 cm/sec Med Peak E' Jose Alfredo: 8.4 cm/sec MV A max jose alfredo: 122.4 cm/sec E/E' lat: 11.0 E/E' med: 13.8 MV E/A: 0.94 MV V2 max: 137.7 cm/sec MV P1/2t max jose alfredo: 124.5 cm/sec Ao V2 max: 159.9 cm/sec MV max P.6 mmHg MV P1/2t: 66.5 msec Ao max P.2 mmHg MV V2 mean: 86.3 cm/sec Ao V2 mean: 107.4 cm/sec MV mean P.4 mmHg MV dec slope: 548.1 cm/sec2 Ao mean P.3 mmHg MV V2 VTI: 40.0 cm MVA(P1/2t): 3.3 cm2 Ao V2 VTI: 37.7 cm AV (velocity ratio): 0.66 AI max jose alfredo: 351.4 cm/sec LV V1 max: 124.9 cm/sec PA V2 max: 109.6 cm/sec AI max P.4 mmHg LV V1 max P.2 mmHg PA V2 mean: 78.1 cm/sec LV V1 mean P.4 mmHg AI dec slope: 240.2 cm/sec2 LV V1 mean: 86.9 cm/sec AI P1/2t: 428.6 msec LV V1 VTI: 25.1 cm TR max jose alfredo: 295.2 cm/sec TR max P.9 mmHg ECHO/Echo Complete W/ Contrast Interpretation Summary Normal LV size. Left ventricular systolic function is normal. The estimated ejection fraction is 60 %. Stage 1 diastolic dysfunction. Contrast injection was performed. Ordering Physician: Bobby Fisher Performed By: [facility] RCS
[2023-05-10 09:37] VITALS: O2SAT 95
--- NOTE | 2023-05-10 10:56 | CASEMGMT ---
RN?CM?OPERATIONS MGR?CM?to room to meet with patient for initial transition planning/care coordination?assessment.?RN?CM?introduced self and role at [facility].? Pt voices understanding and consents to?assessment?at this time.? Pt resting in bed in no distress at this time.? 2 Dtr's @ bedside and pt agreeable to them being present during assessment. Pt is A/O at this time and answers all questions appropriately.?? Care providers, pharmacy, and demographics verified/updated at this time. PCP: Dr Vaughan Specialists: none Preferred Pharmacy: [facility] Retail [place] [facility] [place] Benefit:?none Living Will/HPOA:?Pt does not currently have LW/HCPOA LNOK: , Rj. Dtr's Lakeisha and Lazara. Living Arrangements: Lives w/her and 2 dtrs in 2-story home. FFSU. Total of steps to enter. Pt able to dress self. Dtr's assist w/bathing and they do home mgnt tasks. Pt manages her own medications. Transportation: Hire drivers. DME: States has the following DME:?RTS, shower chair, walker, pulse ox ?Pt and dtr's state no need for further DME at this time.? HHC/SNF: No hx of either. Pt and dtr's made aware of therapy's recommendations for possible HHC. Discussed cost process of HHC set-up and cost/self-pay and questions answered. They state do not want HHC set up at this time. They wish to wait until pt returns home to see how she is doing. They are aware to contact Dr Vaughan to discuss HHC if they change their mind once pt returns home. Also discussed OP therapy and they decline wanting this. Pt and dtr's wish for pt to return home and state have no concerns with going home at time of discharge.? CM?to follow for any further discharge planning/needs.? Pt and dtr's voice no further concerns/needs at this time.? Advised them to ask for?CM?if any further questions/concerns/needs arise.? They voice understanding. PLAN:??Home w/family support and discharge plans in place. [place] KNAPPN?RN?CM
[2023-05-10 11:22] VITALS: O2SAT 91; O2SAT 94
--- NOTE | 2023-05-10 11:28 | DS.PCM_ITS ---
Providers Date of Admission: 05/09/23 Date of Discharge: 05/10/23 Primary Care Physician: Dr. 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 / Pulmonary Medicine Routine Consulting Provider: Pulmonary Medicine akanksha Goshen Reason for Consult: Large left-sided pleural effusion with mediastinal shift EMERGENT Consult: No MD Notified: Yes Date Notified: 05/09/23 Time Notified: 12:44 Method of Notification: Text Reason For Visit: PLEURAL EFFUSION/ MEDIASTINAL SHIFT Diagnosis Discharge Diagnosis (1) Large pleural effusion: Status: Acute Code(s): J90 - Pleural effusion, not elsewhere classified Plan Patient is an 82-year-old female presenting with shortness of breath found to have large left-sided pleural effusion with mediastinal shift 1. Acute dyspnea ? Secondary to large left-sided pleural effusion with mediastinal shift. Patient has been admitted to a monitored bed consult placed to interventional radiology Case discussed with Dr. Jaime plans for patient to undergo both diagnostic as well as therapeutic thoracocentesis with fluid assay sent for analysis including LDH, cell count, cytology, and culture. -05/10/2023; Patient underwent ultrasound-guided thoracocentesis by Dr. Davis on 05/10/2023 with approximately 1050 mL of ramses-colored fluid was ? Plan is for patient to be discharged home with plans for patient to follow-up with pulmonary medicine within a week for results 2. Hypothyroidism - Patient is on levothyroxine home dose continued 3. Hypertension - Blood pressure controlled, home medications continued with dose adjustment as needed 4. History of right breast CA ? Status postlumpectomy with subsequent chemo and radiation therapy 5. Depression ? Patient is on nortriptyline at bedtime 6. Class II obesity with BMI of 39.3 ? Complicating care weight loss advised 7. DVT prophylaxis ? SC Lovenox Time spent in the patient's overall evaluation,decision-making process, review of diagnostic data, adjustment of management, discussion with other providers, nursing nursing and ancillary staff involved in patient's care documentation, 50 Minutes Medications at Discharge Home Medications atenolol 25 mg tablet (Tenormin) 37.5 mg PO BID 08/13/16 clorazepate dipotassium 7.5 mg tablet 0.5 tab PO QHS PRN Sleep 08/13/16 levothyroxine 75 mcg tablet (Levoxyl) [facility] 08/13/16 nifedipine 60 mg tablet,extended release 24 hr 60 mg PO BID heart 08/13/16 nortriptyline 25 mg capsule 25 mg PO QHS 08/13/16 nystatin 100,000 unit/gram topical powder (Nyamyc) 1 applic topical PRN PRN SKIN IRRITATION 08/13/16 potassium chloride 10 mEq tablet,extended release(part/cryst) 10 meq PO UD suppliment 11/15/16 calcium carb,cit ER 600 mg-vit D3 12.5 mcg (500 unit) tablet,ext.rel (Citracal- D3 Slow Release) 1 tab PO DAILY suppliment 05/09/23 cholecalciferol (vitamin D3) 50 mcg (2,000 unit) tablet (Vitamin D3) 2,000 unit PO DAILY suppliment 05/09/23 spironolactone 25 mg tablet 25 mg PO .COMPLEX diuretic 05/09/23 ebjq-blpaktvxa-lqvotrcipdjna-aldioxa topical powder 1 ea topical QHS PRN PRN rash under breasts 05/09/23 transfor factor See Rx Instructions PO DAILY suppliment 05/09/23 Hospital Course Summary of Care Provided Minutes Spent on Discharge: 50 Physical Exam Narrative GENERAL: Cooperative HEENT: Atraumatic; normocephalic EYES; Anicteric, Normal Conjunctiva NECK; supple, normal thyroid, RESPIRATORY: Diminished to auscultation CARDIOVASCULAR: Regular S1 S2, GI: soft, normoactive bowel sounds, : No Renal angle tenderness; EXTREMITIES: edema, no clubbing, MUSCULOSKELETAL: no muscle wasting NEURO: Awake; no lateralizing signs. SKIN: No Rash PSYCH; Flat affect Weight / BMI Weight Weight: 89.9 kg Body Mass Index (BMI) 38.7 ABG / Lab / Microbiology Data 05/10/23 05:35 05/10/23 05:35 Laboratory: Laboratory Results - last 24 hr 05/09/23 09:55: PT 13.3, INR 1.0, APTT 39.0 H, Lactate Dehydrogenase 145 05/09/23 12:20: Fluid Glucose 104 H, Fluid Total Protein 4.2, Fluid LDH 199 05/09/23 : Fluid Source THORACENTESIS, Fluid Color YELLOW, Fluid Appearance CLEAR, Fluid WBC 1.402, Fluid RBC 1005, Fluid Tot Cell Count 1.410 H, Fld Polynuclear WBCs # 0.483, Fld Polynuclear WBCs % 34.5, Fluid Mononuclear WBCs 0.919, Fld Mononuclear WBCs % 65.5, Fluid Neutrophils 30, Fluid Lymphocytes 66, Fluid Monocytes 4, Fl Pathologist Comment May follow, Fluid Comment 2 SEE COMMENT 05/10/23 05:35: WBC 7.2, RBC 5.20, Hgb 14.8, Hct 44.1, MCV 84.8, MCH 28.5, MCHC 33.6, RDW Std Deviation 39.9, RDW Coeff of Mariaelena 12.9, Plt Count 372, MPV 8.9, Immature Gran % (Auto) 0.800, Neut % (Auto) 62.8, Lymph % (Auto) 11.7 L, [place] % (Auto) 20.2 H, Eos % (Auto) 3.3, Baso % (Auto) 1.2 H, Absolute Neuts (auto) 4.5, Absolute Lymphs (auto) 0.85, Nucleated RBC % 0, Sodium 131 L, Potassium 3.9, Chloride 100, Carbon Dioxide 25.0, Anion Gap 6, BUN 11, Creatinine 0.74, Estim Creat Clear Calc 32.23, Est GFR (MDRD) Af Amer 97, Est GFR (MDRD) Non-Af 80, BUN/Creatinine Ratio 14.9, Glucose 93, Calcium 8.2 L, Phosphorus 2.9, Magnesium 2.4 Microbiology: Microbiology 05/09/23 Unknown Fluid - Thoracentesis Fluid Gram Stain - Final Radiography Diagnostic Testing: Radiology Impression Chest X-Ray 05/09/23 12:12 IMPRESSION: Status post left thoracentesis. No evidence of pneumothorax. Electronically Signed: Geovanny Davis MD at 13:45 EDT , Thoracentesis Ultrasound 05/09/23 12:39 IMPRESSION: Ultrasound-guided left thoracentesis. Electronically Signed: Geovanny Davis MD at 13:46 EDT , Chest CT 05/10/23 09:27 IMPRESSION: Small residual left pleural effusion with infiltration and/or atelectasis at the left lung base. 1 cm x 1.2 cm spiculated nodule in the anterior aspect of the left upper lobe as seen on axial image #19 and coronal image #108. Electronically Signed: Geovanny Davis MD at 10:39 EDT , D/C Instructions Discharge Diet: No restrictions Discharge Activity: Return to Normal Activity Call your doctor if you observe: Fever of 101 or Higher, Shortness of breath, Fainting spells and Chest pain Meaningful Use Info Meaningful Use Diagnoses (Choose all that apply): None applicable Discharge Plan Admission Admit Date/Time: 05/09/23 12:10 Attending Provider: Syd Mendoza Primary Care Provider: Evangelina Vaughan Consulting Providers: Luis Anderson; Bobby Fisher; Greg Harper; Abrahan Irvin; Rowan Schmidt SHANK TAPER Discharge Orders/Prescriptions Prescriptions: Continued atenolol [Tenormin] 25 MG tablet 37.5 mg PO BID Patient Comments: heart levothyroxine [Levoxyl] 75 MCG tablet 75 mcg PO [facility]FRSA Patient Comments: thyroid nortriptyline 25 MG capsule 25 mg PO QHS nifedipine 60 MG tablet 60 mg PO BID Patient Comments: blood pressure nystatin [Nyamyc] 1 APPLIC bottle 1 applic topical PRN PRN (Reason: SKIN IRRITATION) clorazepate dipotassium 7.5 MG tablet 0.5 tab PO QHS PRN (Reason: Sleep) Patient Comments: antidepressent potassium chloride 10 MEQ tablet 10 meq PO UD transfor factor See Rx Instructions PO DAILY Patient Comments: 4 life gets it from Rx Instructions: 1 cap daily orally daily; takes one a day orally; spironolactone 25 mg tablet 25 mg PO .COMPLEX Patient Comments: TAKE ONE TABLET BY MOUTH THREE TIMES PER WEEK ON SATURDAY, SATURDAY, SATURDAY Rx Instructions: 25 mg orally three times a week sat; hboe-ersykoczo-yftwgmbg-aldiox Powder 1 ea topical QHS PRN PRN (Reason: rash under breasts) cholecalciferol (vitamin D3) [Vitamin D3] 50 mcg (2,000 unit) tablet 2,000 unit PO DAILY calcium carb and citrate-vitD3 [Citracal-D3 Slow Release] 600 mg-12.5 mcg (500 unit) tablet extended release 1 tab PO DAILY Referrals / Follow Up: Bobby Fisher DO [Med Staff - Active Staff] - In 1 Week Evangelina Vaughan MD [Primary Care Provider] - Within 1 Week Caity Banks MD [Non-Staff] - Disposition Disposition (needs filled in before D/C Order can be placed): Home, Self Care Charges/Coding Visit Charges Inpatient E&M: 96627 Disch Hosp >30min
[2023-05-10 15:58] VITALS: BP 147/68; PULSE 81; RESP 17; TEMP 36.8; O2SAT 94
[2023-05-11 16:32] LABS: Pathology Specimen Additional SEE PATHOLOGY REPORT
[2023-05-13 09:28] LABS: Pathologist Comment/Body Fluid Reviewed
[2023-05-13 17:07] LABS: pH, Body Fluid 11254 7.3 (Not Estab.)
== END 2023-05-10 20:10 | disposition home or self-care (01) | DRG 188 ==
LOC: ED 12:07 → PCU 12:37
PROVIDERS: Admitting Provider Internal Medicine; Emergency Provider Emergency Medicine; PCP Internal Medicine; Visit Provider Internal Medicine
DX: J90 Pleural effusion, not elsewhere classified (principal); E03.9 Hypothyroidism, unspecified; G62.9 Polyneuropathy, unspecified; I10 Essential (primary) hypertension; F32.A Depression, unspecified; R60.0 Localized edema; Z66 Do not resuscitate; Z85.3 Personal history of malignant neoplasm of breast; E66.9 Obesity, unspecified; Z68.39 Body mass index [BMI] 39.0-39.9, adult
CPT/HCPCS: 32555; 36415; 71046; 71250; 80048; 80053; 82945; 83615; 83735; 83880; 83986; 84100; 84157; 84443; 84484; 85025; 85610; 85730; 87070; 87075; 87205; 88108; 88305; 88313; 89050; 93005; 93306; 97162; 97166; 99285; Q9957; A4216; C8929

== ENCOUNTER 2023-05-24 16:16 | Observation (INO) | payer OTHER, SELFPAY ==
[2023-05-24 16:38] VITALS: BP 165/62; PULSE 78; RESP 18; TEMP 36.6; O2SAT 97
--- NOTE | 2023-05-24 16:38 | ED.RN ---
PT STATES SHE WAS TOLD TO COME GET CHEST XRAY ORDERED BY DR MIRTA GANNON.THIS RN CALLED [facility], THERE WAS NO ORDER FOR PT. PT CHECKED IN ER PT
[2023-05-24 16:39] VITALS: BMI 34.9
--- NOTE | 2023-05-24 17:20 | RAD_ITS ---
STUDY: X-RAY CHEST REASON FOR EXAM: Female, 82 years old. SOB TECHNIQUE: PA and lateral views of the chest. COMPARISON: 05/09/2023 FINDINGS: Moderate left effusion is present with chronic appearance and mildly reduced compared to prior exam. Left lower lung atelectasis is also noted. Normal size heart. Normal mediastinum and george. Normal visualized pulmonary arteries. There is atherosclerotic calcification of the aortic arch with tortuosity. Normal visualized thoracic spine. Normal visualized ribs, clavicles, and shoulders. There is no demonstrated abnormality of the visualized soft tissue structures of the upper abdomen. RAD/Chest PA and Lateral IMPRESSION: Chronic appearing layering moderate pleural effusion with basilar atelectasis. Superimposed infiltrate cannot be completely excluded. Electronically Signed: Shant Rain DO at 17:33 EDT ,
--- NOTE | 2023-05-24 19:03 | EKG12_ITS ---
Test Reason : Dysrhythmia Blood Pressure : / mmHG Vent. Rate : 087 BPM Atrial Rate : 087 BPM P-R Int : 184 ms QRS Dur : 084 ms QT Int : 374 ms P-R-T Axes : 042 003 067 degrees QTc Int : 450 ms Normal sinus rhythm Minimal voltage criteria for LVH, may be normal variant ( R in aVL ) Borderline ECG Confirmed by NORMA CHAVEZ, AILIN ([id number]), staff editor ISSA CARDOZO ([id number]) on 05/27/2023 8:44:33 AM Referred By: ALEJANDRO Confirmed By:DELL GREEN MD
[2023-05-24 19:33] VITALS: BP 163/70; PULSE 87; RESP 18; O2SAT 97
[2023-05-24 20:13] LABS: Absolute Lymphocyte Count 1.26 X10^3/uL (0.83-4.51); Absolute Neutrophil Count 7.4 X10^3/uL (2.0-7.7); Basophil# 0.13 X10^3/uL; Basophil% 1.3 % (0-1); Eosinophil# 0.25 X10^3/uL; Eosinophils% 2.4 % (0-5); Hematocrit 52.8 % (37-47); Hemoglobin 17.1 g/dL (12.0-15.0); Lymphocyte # 1.26 X10^3/ul (0.83-4.51); Lymphocyte % 12.3 % (19-41); Mean Corp Hgb Conc 32.4 g/dL (32-36); Mean Corpuscular Hgb 27.7 pg (27.0-32.0); Mean Corpuscular Volume 85.4 fL (81-99); Monocyte# 1.16 X10^3/uL; Monocyte% 11.3 % (0-10); NRBC Flagged by Analyzer 0 % (0-5); Neutrophil # 7.38 X10^3/uL (2.7-7.7); Neutrophil % 72.1 % (47-70); Platelet Count 319 K/mm3 (150-450); RBC Distribution Width CV 13.2 % (11.6-14.6); RBC Distribution Width SD 40.9 fl (35.1-43.9); Red Blood Count 6.18 M/mm3 (4.2-5.4); White Blood Count 10.2 K/mm3 (4.4-11.0)
[2023-05-24 20:43] LABS: Anion Gap 9 (5-15); BUN 10 mg/dL (7-18); BUN/Creat Ratio 12.9 RATIO (10-20); Calcium,Total 9.2 mg/dL (8.5-10.1); Chloride 98 mmol/L (98-107); Creatinine, Serum 0.78 mg/dL (0.55-1.02); EST Glomerular Filtration Rate 76 mL/min (>60); Est Glom Filt Rate - Afr Amer 92 mL/min (>60); Glucose 107 mg/dL (74-106); Potassium 3.6 mmol/L (3.5-5.1); Sodium Level 133 mmol/L (136-145); Troponin-I HS 120 pg/mL (3.0-54.0)
--- NOTE | 2023-05-24 21:00 | ED.VIS.DYS ---
HPI History of Present Illness Chief Complaint: Shortness of Breath Informant: patient Onset/Context/Timing Onset: Yesterday Context: gradual Timing: Continuous Quality: Positive for Dyspnea on exertion Worsened by: Exertion Relieved by: Rest Associated Symptoms cough and chills; Negative for rhinorrhea, post nasal drip, ear pain, fever, sore throat, sweats, clear sputum, white sputum, yellow sputum or green sputum Chest Pain: Positive for Tightness Narrative Narrative: Patient presents with shortness of breath that began yesterday. Patient states it is gradually gotten worse. Patient states her breathing is worse with any exertion. Patient states it is better with rest. Patient admits to some tightness in her chest. Patient also admits to a cough but denies any sputum production. Patient admits to some subjective chills but denies any fevers. Patient has a history of pleural effusions. Patient states she had a recent thoracentesis. 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 PE Risk Factors: Negative for Cancer, OCP + Smoking + > 35, Prior DVT or PE, Recent immobilization, Recent surgery or Recent travel [facility] Medical History (Updated 05/24/23 @ 22:[address] Thony Whitehead, DO) Anxiety and depression Breast CA Hypertension Hypothyroidism Lymphedema of both lower extremities Neuropathy Pleural effusion Home Medications atenolol 25 mg tablet (Tenormin) 37.5 mg PO BID blood pressure 08/13/16 [History Last Taken 11/15/16 05:00] clorazepate dipotassium 7.5 mg tablet 0.5 tab PO QHS PRN Sleep 08/13/16 [History Last Taken 11/15/16 05:00] levothyroxine 75 mcg tablet (Levoxyl) 75 mcg PO MOTUTHFRSA 08/13/16 [History Last Taken Unknown] nifedipine 60 mg tablet,extended release 24 hr 60 mg PO BID heart 08/13/16 [History Last Taken 11/15/16 05:00 60 mg] nortriptyline 25 mg capsule 25 mg PO QHS sleep 08/13/16 [History Last Taken Unknown] nystatin 100,000 unit/gram topical powder (Nyamyc) 1 applic topical PRN PRN SKIN IRRITATION 08/13/16 [History Last Taken Unknown] potassium chloride 10 mEq tablet,extended release(part/cryst) 10 meq PO UD supplement 11/15/16 [History Last Taken 11/15/16 05:00] calcium carb,cit ER 600 mg-vit D3 12.5 mcg (500 unit) tablet,ext.rel (Citracal-D3 Slow Release) 1 tab PO DAILY supplement 05/09/23 [History Last Taken Unknown] cholecalciferol (vitamin D3) 50 mcg (2,000 unit) tablet (Vitamin D3) 2,000 unit PO DAILY supplement 05/09/23 [History Last Taken Unknown] spironolactone 25 mg tablet 25 mg PO .COMPLEX diuretic 05/09/23 [History Last Taken 05/08/23] uvpe-pajrcypvi-iryzhpyptxeof-aldioxa topical powder 1 ea topical QHS PRN PRN rash under breasts 05/09/23 [History Last Taken Unknown] transfor factor See Rx Instructions PO DAILY supplement 05/09/23 [History Last Taken 05/09/23] Allergy/AdvReac Type Severity Reaction Status Date / Time amlodipine Allergy TACHYCARDIA Verified 05/24/23 16:40 AND HYPERTENSION losartan Allergy Swelling Verified 05/24/23 16:40 metoprolol Allergy Swelling Verified 05/24/23 16:40 Penicillins [PCN] Allergy Itching Verified 05/24/23 16:40 diltiazem [From Cardizem] AdvReac Unknown Verified 05/24/23 16:40 olmesartan [From Benicar] AdvReac Unknown Verified 05/24/23 16:40 verapamil AdvReac Unknown Verified 05/24/23 16:40 Surgical History Status post right breast lumpectomy Social History household members: spouse and family housing: house Smoking Status: Never smoker substance use type: does not use ROS ROS ED Constitutional Constitutional ED: Denies chills or fever(s) Eyes Eyes: Denies blurry vision or change in vision ENT ENT ED: Denies rhinorrhea or sore throat Cardiovascular Cardiovascular: Reports chest pain; Denies palpitations Respiratory/Chest Respiratory/Chest: Reports cough and dyspnea Gastrointestinal Gastrointestinal: Denies nausea or vomiting Genitourinary Genitourinary ED: Denies dysuria or hematuria Musculoskeletal Musculoskeletal: Denies back pain or neck pain Integumentary Denies abscess or rash Neurologic Neurologic: Reports headache(s); Denies weakness Allergic/Immunologic Allergic/Immunologic ED: Denies mouth swelling or urticaria EXAM Physical Exam Const Vital Signs: 05/24/23 16:38 05/24/23 18:16 05/24/23 19:33 Temperature 97.8 F Temperature Source Temporal Pulse Rate 78 87 Respiratory Rate 18 18 Respiratory Effort Normal Respiratory Depth Normal Respiratory Pattern Normal Blood Pressure 165/62 H 163/70 H Blood Pressure Mean 96 101 Pulse Ox 97 97 Oxygen Delivery Method Room Air Room Air Room Air Positive well nourished and well developed General Appearance ED: well developed HEENT Reports moist mucous membranes Neck supple and no JVD Resp normal respiratory effort Auscultation: diminished lung sounds left lower Cardio regular rate, regular rhythm and no murmurs GI normal to inspection, nondistended, normoactive bowel sounds and non-tender Palpation: soft Extremity normal to inspection General Extremety ED: Negative for edema or tenderness General Extremity: Negative for edema Neuro oriented x3, CN's II-XII intact bilaterally and no sensory deficits noted Sensorium / Orientation: alert Motor Exam: strength 5/5 throughout Psych mental status grossly normal Skin no rashes or lesions noted MDM MDM MDM Narrative Medical decision making narrative: Differential diagnosis includes pleural effusion, pneumonia,, cardiac dysrhythmia, cardiac ischemia, congestive heart failure, and viral illness. EKG will be obtained to assess for cardiac dysrhythmia and cardiac ischemia. Chest x-ray will be obtained to assess for pneumonia, pneumothorax, pleural effusion. CBC will be obtained to assess for leukocytosis and anemia. Basic metabolic profile will be obtained to assess for electrolyte abnormality and renal function. High-sensitivity troponin will be obtained to assess for cardiac ischemia. Lab Data Attestation: I reviewed the patient's lab results. Lab results narrative: CBC was reviewed. Hemoglobin was slightly elevated at 17.1 and hematocrit was 52.8. Basic metabolic profile was reviewed and was within normal limits. High-sensitivity troponin was reviewed and was slightly elevated at 120. Labs: Laboratory Results - last 24 hr 05/24/23 19:42 WBC 10.2 RBC 6.18 H Hgb 17.1 H Hct 52.8 H MCV 85.4 MCH 27.7 MCHC 32.4 RDW Std Deviation 40.9 RDW Coeff of Mariaelena 13.2 Plt Count 319 MPV 9.0 Immature Gran % (Auto) 0.600 Neut % (Auto) 72.1 H Lymph % (Auto) 12.3 L [place] % (Auto) 11.3 H Eos % (Auto) 2.4 Baso % (Auto) 1.3 H Absolute Neuts (auto) 7.4 Absolute Lymphs (auto) 1.26 Nucleated RBC % 0 Sodium 133 L Potassium 3.6 Chloride 98 Carbon Dioxide 26.0 Anion Gap 9 BUN 10 Creatinine 0.78 Est GFR (MDRD) Af Amer 92 Est GFR (MDRD) Non-Af 76 BUN/Creatinine Ratio 12.9 Glucose 107 H Calcium 9.2 Troponin I High Sens 120 H Radiography Chest X-Ray - ED: 2 View, Read by ED Physician, Read by Radiologist and Left Effusion Diagnostic Testing: Clinical Impression(s) from Imaging Studies Chest X-Ray 05/24/23 17:20 IMPRESSION: Chronic appearing layering moderate pleural effusion with basilar atelectasis. Superimposed infiltrate cannot be completely excluded. Electronically Signed: Shant Rain DO at 17:33 EDT , PA and lateral chest x-ray was obtained. There are 2 views. On my independent interpretation, lung kern show a moderate size left pleural effusion with basilar atelectasis. There is normal cardiac silhouette. Bony thorax is normal. Radiologist also interpreted the x-ray and agrees. EKG Initial EKG: Attestation: I personally reviewed and interpreted this EKG as follows: Interpretation: Sinus Rhythm (87) and Non-Specific ST Changes Comments: EKG was obtained. On my independent interpretation, it showed a normal sinus rhythm with a rate of 87. IN interval, QRS interval, and QTc intervals were all normal. [place] was normal. There are nonspecific ST-T wave changes. Prior EKG tracings: available for review Prior: Unchanged (05/09/2023) Management Discussion w/another healthcare provider: Hospitalist Treatment and Re-Evaluation :: Patient was advised of her findings. Patient has a HEART score of 6. Because of this, I recommended admission to the hospital for observation. Patient and family are agreeable with the plan. Case was discussed with the hospitalist. She will admit the patient to her service. All questions were answered. Discharge Plan Triage Chief Complaint: Shortness of Breath ED Provider: Thony Whitehead Dx/Rx/DC Orders Clinical Impression: Pleural effusion, Elevated troponin Primary Care Provider: Evangelina Vaughan Disposition Disposition: Acute Care Hospital [facility]
--- NOTE | 2023-05-24 21:44 | PCM.HP.STD ---
HPI - General General Date of Admission: 05/24/23 Date of Service: 05/24/23 Chief Complaint: Dyspnea, chest tightness. HPI Narrative The patient is an 82 y/o F w/ PMHx: Obesity, Anxiety and Depression, Hypothyroidism, Hx R breast CA s/p lumpectomy as well as chemotherapy/radiation, recent discharge 05/10/23 with evaluation of large L sided pleural effusion with mediastinal shift w/ thoracentesis performed and consultation with Pulmonary medicine with pathology negative for malignancy who now re-presents to the [facility] ED on 05/24/23 with history of recurrent dyspnea, worse with exertion with associated nonproductive cough, reported chills with no fever as well as chest tightness gradually worsening, improving with rest prompting call to her pulmonary office who recommended evaluation in the ED. she reports the tightness in her chest at its worse as 6 out of 10 in severity and currently upon presentation improved to 3 out of 10 in severity. Work-up in the ED included T97.8, heart rate 78, BP 165/62, respiratory rate 18, 97% on room air, CBC with WC 10.2, hemoglobin 17.1, platelet 319 without marked shift, BMP with sodium 133, glucose 107, troponin 120, chest x-ray with chronic appearing layering moderate pleural effusion with basilar atelectasis although superimposed infiltrate cannot be completely excluded, EKG with sinus rhythm with nonspecific changes unchanged from previous recent EKG. [facility] Medical History (Updated 05/25/23 @ 01:[address] Tamiko Villagomez MD) Anxiety and depression Breast CA Hypertension Hypothyroidism Lymphedema of both lower extremities Neuropathy Pleural effusion Home Medications atenolol 25 mg tablet (Tenormin) 37.5 mg PO BID blood pressure 08/13/16 [History Last Taken 11/15/16 05:00] clorazepate dipotassium 7.5 mg tablet 0.5 tab PO QHS PRN Sleep 08/13/16 [History Last Taken 11/15/16 05:00] levothyroxine 75 mcg tablet (Levoxyl) 75 mcg PO MOTUTHFRSA 08/13/16 [History Last Taken Unknown] nifedipine 60 mg tablet,extended release 24 hr 60 mg PO BID heart 08/13/16 [History Last Taken 11/15/16 05:00 60 mg] nortriptyline 25 mg capsule 25 mg PO QHS sleep 08/13/16 [History Last Taken Unknown] nystatin 100,000 unit/gram topical powder (Nyamyc) 1 applic topical PRN PRN SKIN IRRITATION 08/13/16 [History Last Taken Unknown] potassium chloride 10 mEq tablet,extended release(part/cryst) 10 meq PO UD supplement 11/15/16 [History Last Taken 11/15/16 05:00] calcium carb,cit ER 600 mg-vit D3 12.5 mcg (500 unit) tablet,ext.rel (Citracal-D3 Slow Release) 1 tab PO DAILY supplement 05/09/23 [History Last Taken Unknown] cholecalciferol (vitamin D3) 50 mcg (2,000 unit) tablet (Vitamin D3) 2,000 unit PO DAILY supplement 05/09/23 [History Last Taken Unknown] spironolactone 25 mg tablet 25 mg PO .COMPLEX diuretic 05/09/23 [History Last Taken 05/08/23] xgfj-xroddfkmv-zifofgdwjtcsk-aldioxa topical powder 1 ea topical QHS PRN PRN rash under breasts 05/09/23 [History Last Taken Unknown] transfor factor See Rx Instructions PO DAILY supplement 05/09/23 [History Last Taken 05/09/23] Allergy/AdvReac Type Severity Reaction Status Date / Time amlodipine Allergy TACHYCARDIA Verified 05/24/23 16:40 AND HYPERTENSION losartan Allergy Swelling Verified 05/24/23 16:40 metoprolol Allergy Swelling Verified 05/24/23 16:40 Penicillins [PCN] Allergy Itching Verified 05/24/23 16:40 diltiazem [From Cardizem] AdvReac Unknown Verified 05/24/23 16:40 olmesartan [From Benicar] AdvReac Unknown Verified 05/24/23 16:40 verapamil AdvReac Unknown Verified 05/24/23 16:40 Family History (Updated 05/25/23 @ 01:[address] Tamiko Villagomez MD) Mother Heart disease Father Heart disease Surgical History Status post right breast lumpectomy Social History household members: spouse and family housing: house Smoking Status: Never smoker substance use type: does not use ROS ROS Narrative Admission Review of Systems: CONSTITUTIONAL: No weight loss, fever, chills, + weakness or fatigue. HEENT: Eyes: No visual loss, blurred vision, double vision or yellow sclerae. Ears, Nose, Throat: No hearing loss, sneezing, congestion, runny nose or sore throat. SKIN: No rash or itching, lesions, wounds. CARDIOVASCULAR: + Chest pressure, edema. No palpitations, orthopnea, syncopal events. RESPIRATORY: + Shortness of breath, worse with exertion, occasional cough without marked sputum. No wheezing, hemoptysis. GASTROINTESTINAL: No anorexia, nausea, vomiting or diarrhea, abdominal pain, melena, BRBPR. GENITOURINARY: No dysuria, frequency, urgency or retention. NEUROLOGICAL: No headache, dizziness, syncope, paralysis, ataxia, numbness or tingling in the extremities, focal weakness, change in bowel or bladder control, seizure. MUSCULOSKELETAL: + muscle, back pain, joint pain or stiffness. HEMATOLOGIC: + Easy bleeding or bruising. LYMPHATICS: No enlarged nodes. No history of splenectomy. PSYCHIATRIC: + history of depression or anxiety. ENDOCRINOLOGIC: No reports of sweating, cold or heat intolerance. No polyuria or polydipsia. ALLERGIES: No history of asthma, hives, eczema or rhinitis. Vital Signs Vital Signs Vital Signs: 05/24/23 16:38 05/24/23 18:16 05/24/23 19:33 Temperature 97.8 F Temperature Source Temporal Pulse Rate 78 87 Respiratory Rate 18 18 Respiratory Effort Normal Respiratory Depth Normal Respiratory Pattern Normal Blood Pressure 165/62 H 163/70 H Blood Pressure Mean 96 101 Pulse Ox 97 97 Oxygen Delivery Method Room Air Room Air Room Air Physical Exam Narrative Physical Examination: General: Awake, alert, oriented x 3 and cooperative, seated upright in the ED bed in no apparent distress, notes chest tightness is improving. Skin: Normal color, normal turgor, no icterus, no cyanosis. HEENT: AT/NC, EOMI, PERRLA, MMM, no carotid bruits or JVD noted; however thickened neck makes evaluation difficult. Lungs: Diminished, greater bases, worse left base, no evidence of any distress, appropriate effort, no rales, ronchi or wheezing. Heart: Currently regular rate and rhythm; no gallop, rub audible, + SM. Abdomen: Soft, obese, NTTP, ND, mildly hyperactive BS, no HSM. Extremities: No cyanosis, no clubbing, chronic peripheral pedal to [place] edema. Neurological: Patient awake, alert, oriented as noted, cognitive function intact; pupils equally reactive to light and accommodation, cranial nerves grossly normal, moving all 4 extremities, no focal deficits, strength moderately to severely global decrease secondary to acute presentation. Psychiatric: Affect appears fatigued, no acute evidence of depressive or anxiety feelings but does have underlying history. Results Lab / Micro Data 05/24/23 19:42 05/24/23 19:42 Labs: Laboratory Results - last 24 hr 05/24/23 19:42: WBC 10.2, RBC 6.18 H, Hgb 17.1 H, Hct 52.8 H, MCV 85.4, MCH 27.7, MCHC 32.4, RDW Std Deviation 40.9, RDW Coeff of Mariaelena 13.2, Plt Count 319, MPV 9.0, Immature Gran % (Auto) 0.600, Neut % (Auto) 72.1 H, Lymph % (Auto) 12.3 L, [place] % (Auto) 11.3 H, Eos % (Auto) 2.4, Baso % (Auto) 1.3 H, Absolute Neuts (auto) 7.4, Absolute Lymphs (auto) 1.26, Nucleated RBC % 0, Sodium 133 L, Potassium 3.6, Chloride 98, Carbon Dioxide 26.0, Anion Gap 9, BUN 10, Creatinine 0.78, Est GFR (MDRD) Af Amer 92, Est GFR (MDRD) Non-Af 76, BUN/Creatinine Ratio 12.9, Glucose 107 H, Calcium 9.2, Troponin I High Sens 120 H Radiology Impression Chest X-Ray 05/24/23 17:20 IMPRESSION: Chronic appearing layering moderate pleural effusion with basilar atelectasis. Superimposed infiltrate cannot be completely excluded. Electronically Signed: Shant Rain DO at 17:33 EDT , Assessment & Plan Assessment/Plan (1) Chest pain: PLAN: Plan The patient is an 82 y/o F w/ PMHx: Obesity, Anxiety and Depression, Hypothyroidism, Hx R breast CA s/p lumpectomy as well as chemotherapy/radiation, recent discharge 05/10/23 with evaluation of large L sided pleural effusion with mediastinal shift w/ thoracentesis performed and consultation with Pulmonary medicine with pathology negative for malignancy who now re-presents to the [facility] ED on 05/24/23 with history of recurrent dyspnea, worse with exertion with associated nonproductive cough, reported chills with no fever as well as chest tightness gradually worsening, improving with rest prompting call to her pulmonary office who recommended evaluation in the ED. #1. Chest tightness, dyspnea, worse with exertion with indeterminate cardiac enzyme, possibly multifactorial with recurrent layering moderate left-sided pleural effusion status post recent thoracentesis, Possible Infectious etiology given chills but afebrile and no marked WBC elevation or shift: EKG in ED sinus rhythm with nonspecific changes with no acute evidence of ischemia, CXR w/ with a recurrently moderate pleural left-sided effusion status post recent left-sided thoracentesis of note, initial trop 120. Will admit to PCU, place on a monitored bed to assure no acute myocardial infarction with serial cardiac enzymes and EKGs. If repeat serial cardiac enzymes and EKGs remain unremarkable will pursue a.m. cardiac stress testing in addition to planned evaluation for repeat pulmonary evaluation and consideration of thoracentesis if necessary but currently patient oxygenation appropriate with no respiratory distress, will obtain procalcitonin, sputum Cx, respiratory viral panel, urine antigens but given AF, no marked WBC elevation or L shift thus will defer immediate abx therapy. ASA. #2. Hypertension: Continue home regimen including spironolactone, nifedipine, atenolol, PRN hydralazine. #3. Hypothyroidism: We will continue patient on levothyroxine regimen. #4. Anxiety and depression: We will continue patient home nortriptyline nightly regimen. #5. History right breast cancer: Unclear type, status post right breast lumpectomy followed by chemotherapy and radiation, considered in remission. #6. Obesity: Weight loss and lifestyle changes encouraged. #7. DVT prophylaxis: SCDs, defer chemoprophylaxis in case patient does need recurrent thoracentesis. #8. CODE status: Patient does not have healthcare power ip technology transactions attorney or living will in place. Discussed CODE status at length including difference between FULL code, DNR-CCA and DNR-CC status. Following discussions about the differences in these status, requested Full Code status. Charges/Coding Visit Charges Inpatient E&M: 90906 Init Hosp L3
[2023-05-24 23:08] VITALS: BP 153/72; PULSE 84; RESP 18; TEMP 36.7; O2SAT 95
[2023-05-24 23:31] LABS: Magnesium 2.3 mg/dL (1.6-2.6)
[2023-05-24 23:53] VITALS: BP 152/60; PULSE 85; RESP 16; TEMP 35.8; O2SAT 100; BMI 35.0
[2023-05-25 00:26] LABS: Procalcitonin < 0.04 ng/mL (0.00-0.09)
[2023-05-25 00:40] LABS: Troponin-I HS 102 pg/mL (3.0-54.0)
[2023-05-25 02:00] VITALS: O2SAT 100
[2023-05-25 02:23] LABS: Troponin-I HS 103 pg/mL (3.0-54.0)
[2023-05-25 05:11] VITALS: BP 139/65; PULSE 81; RESP 16; TEMP 36.6; O2SAT 96
[2023-05-25 05:45] LABS: Absolute Lymphocyte Count 1.13 X10^3/uL (0.83-4.51); Absolute Neutrophil Count 5.9 X10^3/uL (2.0-7.7); Basophil# 0.09 X10^3/uL; Eosinophil# 0.29 X10^3/uL; Eosinophils% 3.3 % (0-5); Hematocrit 48.1 % (37-47); Hemoglobin 15.9 g/dL (12.0-15.0); Lymphocyte # 1.13 X10^3/ul (0.83-4.51); Mean Corp Hgb Conc 33.1 g/dL (32-36); Mean Corpuscular Volume 84.8 fL (81-99); Mean Platelet Vol. 8.7 fl (6.2-12.0); Monocyte# 1.24 X10^3/uL; Monocyte% 14.3 % (0-10); NRBC Flagged by Analyzer 0 % (0-5); Neutrophil # 5.88 X10^3/uL (2.7-7.7); Neutrophil % 68.1 % (47-70); Platelet Count 267 K/mm3 (150-450); RBC Distribution Width CV 13.2 % (11.6-14.6); RBC Distribution Width SD 41.1 fl (35.1-43.9); Red Blood Count 5.67 M/mm3 (4.2-5.4); White Blood Count 8.7 K/mm3 (4.4-11.0)
[2023-05-25] MEDS: Aspirin 81 MG TAB.CHEW PO (05:55)
[2023-05-25] MEDS: Levothyroxine 75 MCG Tablet PO (05:55)
[2023-05-25 06:00] VITALS: BMI 35.0
[2023-05-25 06:09] LABS: Troponin-I HS 99 pg/mL (3.0-54.0)
[2023-05-25 06:18] LABS: ALB/GLOB Ratio 0.7 RATIO (0.9-2.4); AST(SGOT) 20 U/L (15-37); Alanine Aminotransfer ALT/SGPT 25 U/L (13-56); Albumin, Serum 2.7 g/dL (3.2-5.0); Alkaline Phosphatase 82 U/L (45-117); Anion Gap 7 (5-15); BUN 11 mg/dL (7-18); BUN/Creat Ratio 15.6 RATIO (10-20); Calcium,Total 8.3 mg/dL (8.5-10.1); Chloride 101 mmol/L (98-107); Cholesterol 218 mg/dL (200); EST Glomerular Filtration Rate 85 mL/min (>60); Est Glom Filt Rate - Afr Amer 102 mL/min (>60); Estimated Creatinine Clearance 33.86 ml/min; Globulin 3.9 g/dL (2.2-4.2); Glucose 103 mg/dL (74-106); High Density Lipoprotein 60 mg/dL; Potassium 3.7 mmol/L (3.5-5.1); Protein, Total 6.6 g/dL (6.4-8.2); Sodium Level 133 mmol/L (136-145); Triglycerides 83 mg/dL; Very Low Density Lipoprotein 17 mg/dL (5-40)
--- NOTE | 2023-05-25 06:19 | EX.PCM.CONCC ---
Assessment & Plan Assessment/Plan (1) Pleural effusion: PLAN: Plan RECOMMENDATIONS: 1. Proceed with cardiac stress test. 2. Recommend repeat thoracentesis at some point. This does not necessarily need to be completed while inpatient, given the patient's stability from an oxygenation perspective. 3. Recommend CT-guided lung biopsy of left upper lobe lung nodule. 4. Encourage incentive spirometer use and mobilize patient as tolerated. IMPRESSIONS: 1. Undifferentiated pleural effusion/left upper lobe lung nodule The patient was last admitted to the hospital in April with a undifferentiated pleural effusion, for which she underwent thoracentesis. The pleural fluid analysis was consistent with an exudate. However, the pleural fluid analysis did not reveal evidence of malignant cells. She does continue to have a moderate left-sided pleural effusion, but is stable from a respiratory perspective. CT imaging of the chest that was obtained shortly after her last thoracentesis did demonstrate a left upper lobe spiculated lung nodule. Therefore, I would recommend that we attempt to biopsy this. However, this would not technically need to be completed while inpatient, given her overall clinical stability. I agree with cardiac stress testing as ordered. For the sake of completeness, given the undifferentiated nature of her pleural effusion, will check autoimmune profile. This note was generated with [employer] dictation software. It may contain incorrect words, spelling, and punctuation that were not noted in checking the note before signing. HPI Consult Data Date of Consult: 05/25/23 HPI Narrative Reason for Consultation: Pleural effusion HPI Narrative: The patient is an 82-year-old female, with a history as outlined below, who presented to the emergency department on May 24 with shortness of breath of 1 day duration. She also reported associated tightness in her chest. The patient presented to the hospital and was admitted in April 2023 under similar circumstances. She has a history of obesity, hypothyroidism and right-sided breast cancer status post lumpectomy. This has been in remission from a cancer perspective for the last 6 years. The patient ultimately underwent thoracentesis during her last hospitalization with 1 L of fluid removed. The pleural fluid, at that time, was technically exudative in nature. However, cytology was negative for malignancy. On presentation to the emergency department, the patient was noted to be afebrile and hemodynamically stable. She was maintaining appropriate oxygen saturations on room air. Initial laboratory evaluation revealed no evidence of a leukocytosis. Hemoglobin was elevated at 17.1. Chemistry profile was unrevealing. Troponin was elevated at 120. Procalcitonin level was negative. Chest x-ray demonstrated a left-sided effusion, which is smaller in size than that from May 09. It should be noted that the patient had a lung nodule that measured 1 cm in size in the left upper lobe on CT imaging of the chest from May 10. The patient was subsequently admitted to the hospital with tentative plans for cardiac stress test. PENDING SALE TO [facility] Medical History (Updated 05/25/23 @ 01:[address] Tamiko Villagomez MD) Anxiety and depression Breast CA Hypertension Hypothyroidism Lymphedema of both lower extremities Neuropathy Pleural effusion Home Medications atenolol 25 mg tablet (Tenormin) 37.5 mg PO BID blood pressure 08/13/16 [History Last Taken 11/15/16 05:00] clorazepate dipotassium 7.5 mg tablet 0.5 tab PO QHS PRN Sleep 08/13/16 [History Last Taken 11/15/16 05:00] levothyroxine 75 mcg tablet (Levoxyl) 75 mcg PO MOTUTHFRSA 08/13/16 [History Last Taken Unknown] nifedipine 60 mg tablet,extended release 24 hr 60 mg PO BID heart 08/13/16 [History Last Taken 11/15/16 05:00 60 mg] nortriptyline 25 mg capsule 25 mg PO QHS sleep 08/13/16 [History Last Taken Unknown] nystatin 100,000 unit/gram topical powder (Nyamyc) 1 applic topical PRN PRN SKIN IRRITATION 08/13/16 [History Last Taken Unknown] potassium chloride 10 mEq tablet,extended release(part/cryst) 10 meq PO UD supplement 11/15/16 [History Last Taken 11/15/16 05:00] calcium carb,cit ER 600 mg-vit D3 12.5 mcg (500 unit) tablet,ext.rel (Citracal-D3 Slow Release) 1 tab PO DAILY supplement 05/09/23 [History Last Taken Unknown] cholecalciferol (vitamin D3) 50 mcg (2,000 unit) tablet (Vitamin D3) 2,000 unit PO DAILY supplement 05/09/23 [History Last Taken Unknown] spironolactone 25 mg tablet 25 mg PO .COMPLEX diuretic 05/09/23 [History Last Taken 05/08/23] zfyt-pjyeiwiwl-qirgziglktvlp-aldioxa topical powder 1 ea topical QHS PRN PRN rash under breasts 05/09/23 [History Last Taken Unknown] transfor factor See Rx Instructions PO DAILY supplement 05/09/23 [History Last Taken 05/09/23] Allergy/AdvReac Type Severity Reaction Status Date / Time amlodipine Allergy TACHYCARDIA Verified 05/24/23 16:40 AND HYPERTENSION losartan Allergy Swelling Verified 05/24/23 16:40 metoprolol Allergy Swelling Verified 05/24/23 16:40 Penicillins [PCN] Allergy Itching Verified 05/24/23 16:40 diltiazem [From Cardizem] AdvReac Unknown Verified 05/24/23 16:40 olmesartan [From Benicar] AdvReac Unknown Verified 05/24/23 16:40 verapamil AdvReac Unknown Verified 05/24/23 16:40 Family History (Updated 05/25/23 @ 01:[address] Tamiko Villagomez MD) Mother Heart disease Father Heart disease Surgical History Status post right breast lumpectomy Social History household members: spouse and family housing: house Smoking Status: Never smoker substance use type: does not use ROS ROS Narrative 10 systems were reviewed with pertinent positives as noted in the HPI above. Physical Exam Const alert and no apparent distress Constitutional Narrative: is present at the bedside. General Appearance: cooperative HEENT normocephalic and head/scalp atraumatic General Ear: hearing grossly impaired Eyes PERRL, EOMs intact bilaterally and conjunctivae normal Neck supple General: trachea midline Resp normal respiratory effort Resp Narrative: Diminished air movement the left lung base. Cardio regular rate and regular rhythm GI normal to inspection, nondistended, normoactive bowel sounds Extremity no clubbing, cyanosis or edema Skin no rashes or lesions noted Neuro oriented x3, CN's II-XII intact bilaterally and moves all extremities Psych cooperative and affect normal Lab / Micro Data 05/25/23 05:35 05/25/23 05:35 Labs: Laboratory Results - last 24 hr 05/24/23 19:42: WBC 10.2, RBC 6.18 H, Hgb 17.1 H, Hct 52.8 H, MCV 85.4, MCH 27.7, MCHC 32.4, RDW Std Deviation 40.9, RDW Coeff of Mariaelena 13.2, Plt Count 319, MPV 9.0, Immature Gran % (Auto) 0.600, Neut % (Auto) 72.1 H, Lymph % (Auto) 12.3 L, [place] % (Auto) 11.3 H, Eos % (Auto) 2.4, Baso % (Auto) 1.3 H, Absolute Neuts (auto) 7.4, Absolute Lymphs (auto) 1.26, Nucleated RBC % 0, Sodium 133 L, Potassium 3.6, Chloride 98, Carbon Dioxide 26.0, Anion Gap 9, BUN 10, Creatinine 0.78, Est GFR (MDRD) Af Amer 92, Est GFR (MDRD) Non-Af 76, BUN/Creatinine Ratio 12.9, Glucose 107 H, Calcium 9.2, Magnesium 2.3, Troponin I High Sens 120 H 05/24/23 23:34: Procalcitonin < 0.04 05/25/23 00:14: Troponin I High Sens 102 H 05/25/23 01:47: Troponin I High Sens 103 H 05/25/23 05:35: WBC 8.7, RBC 5.67 H, Hgb 15.9 H, Hct 48.1 H, MCV 84.8, MCH 28.0, MCHC 33.1, RDW Std Deviation 41.1, RDW Coeff of Mariaelena 13.2, Plt Count 267, MPV 8.7, Immature Gran % (Auto) 0.300, Neut % (Auto) 68.1, Lymph % (Auto) 13.0 L, [place] % (Auto) 14.3 H, Eos % (Auto) 3.3, Baso % (Auto) 1.0, Absolute Neuts (auto) 5.9, Absolute Lymphs (auto) 1.13, Nucleated RBC % 0, Sodium 133 L, Potassium 3.7, Chloride 101, Carbon Dioxide 25.0, Anion Gap 7, BUN 11, Creatinine 0.70, Estim Creat Clear Calc 33.86, Est GFR (MDRD) Af Amer 102, Est GFR (MDRD) Non-Af 85, BUN/Creatinine Ratio 15.6, Glucose 103, Calcium 8.3 L, Total Bilirubin 0.60, AST 20, ALT 25, Alkaline Phosphatase 82, Troponin I High Sens 99 H, Total Protein 6.6, Albumin 2.7 L, Globulin 3.9, Albumin/Globulin Ratio 0.7 L, Triglycerides 83, Cholesterol 218 H, LDL Cholesterol 141 H, VLDL Cholesterol 17, HDL Cholesterol 60 Micro: Microbiology 05/25/23 01:50 Mucosa - Nasopharyngeal Respiratory Panel (PCR) - Final 05/25/23 02:12 Urine, Clean Catch Streptococcus pneumoniae Antigen (M - Final 05/25/23 02:12 Urine, Clean Catch Legionella Antigen - Final Radiology Impression Chest X-Ray 05/24/23 17:20 IMPRESSION: Chronic appearing layering moderate pleural effusion with basilar atelectasis. Superimposed infiltrate cannot be completely excluded. Electronically Signed: Shant Rain DO at 17:33 EDT , Charges/Coding Visit Charges Inpatient E&M: 94817 Init Hosp L2
[2023-05-25 08:33] LABS: Troponin-I HS 94 pg/mL (3.0-54.0)
[2023-05-25 08:34] LABS: Rheumatoid Factor < 10.0 IU/mL (<15)
[2023-05-25 10:00] VITALS: BP 147/55; PULSE 79; RESP 16; TEMP 36.2; O2SAT 98
[2023-05-25] MEDS: Atenolol 25 MG Tablet 37.5 MG PO ×2 (10:31→20:12)
[2023-05-25] MEDS: NIFEdipine 60 MG Tablet PO ×2 (10:31→20:11)
--- NOTE | 2023-05-25 11:40 | CASEMGMT ---
OPAL GARCIA Discharge Planning: This RN CM met with pt and pt's spouse face to face at bedside. Pt sitting up in the chair. Pt' spouse explained that pt is very [place] with hearing aides and her hearing aides are currently broken so pt unable to hear much. Pt's spouse states pt has a walker and he assists pt as needed as well as two of their daughters who assist. Pt's spouse denies any current dc needs and feels they have been managing pt's care well at home. Jerson Stoddard RN CM
[2023-05-25 13:12] VITALS: O2SAT 97
--- NOTE | 2023-05-25 13:15 | PN_ITS ---
Subjective Subjective Patient seen and examined. was by her bedside. She was hard of hearing. SHe denied any fever, chills, cough, chest pain, palpitations, dizziness, nausea, vomiting or any other symptoms. Review of systems is otherwise negative. She is for stress test today. Objective Data Objective Data Vital Signs: Vital Signs Temp Pulse Resp BP Pulse Ox O2 Del Method 97.1 F L 79 16 147/55 H 98 Room Air 05/25/23 10:00 05/25/23 10:00 05/25/23 10:00 05/25/23 10:00 05/25/23 10:00 05/25/23 10:00 Oxygen Delivery Method Room Air Weight: 185 lb 6.54 oz Body Mass Index (BMI) 35.0 Lab / Micro Data 05/25/23 05:35 05/25/23 05:35 Labs: Laboratory Results - last 24 hr 05/24/23 19:42: WBC 10.2, RBC 6.18 H, Hgb 17.1 H, Hct 52.8 H, MCV 85.4, MCH 27.7, MCHC 32.4, RDW Std Deviation 40.9, RDW Coeff of Mariaelena 13.2, Plt Count 319, MPV 9.0, Immature Gran % (Auto) 0.600, Neut % (Auto) 72.1 H, Lymph % (Auto) 12.3 L, [place] % (Auto) 11.3 H, Eos % (Auto) 2.4, Baso % (Auto) 1.3 H, Absolute Neuts (auto) 7.4, Absolute Lymphs (auto) 1.26, Nucleated RBC % 0, Sodium 133 L, Potassium 3.6, Chloride 98, Carbon Dioxide 26.0, Anion Gap 9, BUN 10, Creatinine 0.78, Est GFR (MDRD) Af Amer 92, Est GFR (MDRD) Non-Af 76, BUN/Creatinine Ratio 12.9, Glucose 107 H, Calcium 9.2, Magnesium 2.3, Troponin I High Sens 120 H 05/24/23 23:34: Procalcitonin < 0.04 05/25/23 00:14: Troponin I High Sens 102 H 05/25/23 01:47: Troponin I High Sens 103 H 05/25/23 05:35: WBC 8.7, RBC 5.67 H, Hgb 15.9 H, Hct 48.1 H, MCV 84.8, MCH 28.0, MCHC 33.1, RDW Std Deviation 41.1, RDW Coeff of Mariaelena 13.2, Plt Count 267, MPV 8.7, Immature Gran % (Auto) 0.300, Neut % (Auto) 68.1, Lymph % (Auto) 13.0 L, [place] % (Auto) 14.3 H, Eos % (Auto) 3.3, Baso % (Auto) 1.0, Absolute Neuts (auto) 5.9, Absolute Lymphs (auto) 1.13, Nucleated RBC % 0, Sodium 133 L, Potassium 3.7, Chloride 101, Carbon Dioxide 25.0, Anion Gap 7, BUN 11, Creatinine 0.70, Estim Creat Clear Calc 33.86, Est GFR (MDRD) Af Amer 102, Est GFR (MDRD) Non-Af 85, BUN/Creatinine Ratio 15.6, Glucose 103, Calcium 8.3 L, Total Bilirubin 0.60, AST 20, ALT 25, Alkaline Phosphatase 82, Troponin I High Sens 99 H, Total Protein 6.6, Albumin 2.7 L, Globulin 3.9, Albumin/Globulin Ratio 0.7 L, Triglycerides 83, Cholesterol 218 H, LDL Cholesterol 141 H, VLDL Cholesterol 17, HDL Cholesterol 60 05/25/23 07:20: Troponin I High Sens 94 H 05/25/23 07:38: Rheumatoid Factor < 10.0 Micro: Microbiology 05/25/23 01:50 Mucosa - Nasopharyngeal Respiratory Panel (PCR) - Final 05/25/23 02:12 Urine, Clean Catch Streptococcus pneumoniae Antigen (M - Final 05/25/23 02:12 Urine, Clean Catch Legionella Antigen - Final Radiography Diagnostic Testing: Radiology Impression Chest X-Ray 05/24/23 17:20 IMPRESSION: Chronic appearing layering moderate pleural effusion with basilar atelectasis. Superimposed infiltrate cannot be completely excluded. Electronically Signed: Shant Rain DO at 17:33 EDT , Physical Exam Const alert, oriented x3 and no apparent distress General Appearance: cooperative HEENT normocephalic, head/scalp atraumatic, moist oral mucous membranes and oropharynx normal Eyes PERRL and EOMs intact bilaterally Neck no lymphadenopathy and supple Lymph Lymphatic: no lymphadenopathy noted and no lymphedema noted Resp Resp Narrative: diminished breath sounds bibasally, no wheezes or crackles. on room air. Cardio regular rate, regular rhythm, S1 normal heart sound, S2 normal heart sound and no murmurs GI normal to inspection, nondistended, normoactive bowel sounds, soft to palpation, non-tender and non-distended Extremity normal capillary refill, no clubbing, cyanosis or edema and no calf tenderness Skin General Skin Exam: no breakdown Neuro CN's II-XII intact bilaterally, no focal motor deficits, no sensory deficits noted and deep tendon reflexes 2+ bilaterally Motor Exam: strength 5/5 throughout Psych thought process normal, cooperative and affect normal Appearance: appropriate Assessment & Plan Assessment/Plan (1) Chest pain: QUALIFIERS: Chest pain type: unspecified Qualified Code(s): R07.9 - Chest pain, unspecified (2) Pleural effusion: (3) Elevated troponin: PLAN: #Chest pain * also has recurrent layering moderate left sided pleural effusion s/p recent thoracentesis. * cardiac enzymes were elevated, with initial troponin of 120, which trended down to 94. * for stress test today * #Recurrent pleural effusion * has had thoracentesis previously, cytology of which was negative for malignancy * pulmonology on board. She may need repeat thoracentesis again during this stay * sputum culture and respiratory panel pending * wbc not elevated so antibiotics deferred. * #Hypertension; on spironolactone, nifedipine and atenolol. #Anxiety and depression; on nortryptiline #History of breast cancer: s/p right breast lumpectomy, and s/p chemo and radiation. Follow up with oncology on outpatient basis #Hyperlipidemia:cholesterol elevated at 218 and LDL of 141 as well as VLDL of 17. #Hypothyroidism: on synthroid DVT prophylaxis: SCDs. Charges/Coding Visit Charges Inpatient E&M: 95712 Subs Hosp L2
--- NOTE | 2023-05-25 14:15 | STRESSREP_ITS ---
Stress Test Report Date: 05/25/2023 Procedure: Pharmacologic stress nuclear imaging study Indications: Chest pain Consent: Per the patient Procedure: The patient underwent pharmacologic (Regadenoson) evaluation with a peak heart rate of 86 beats per minute (61%predicted maximal heart rate) and a peak blood pressure of 151/65 mmHg. The baseline ECG demonstrated normal sinus rhythm, nonspecific ST-T changes. EKG during lexiscan infusion revealed no significant ischemic changes. EKG post infusion revealed no significant ischemic changes [There were no cardiac dysrhythmias pretest, during pharmacologic infusion, or recovery]. [There was no complaint of chest discomfort during pharmacologic infusion or recovery]. The examination was discontinued secondary to completion of protocol. Impression: 1. Lexiscan stress test test is negative for Lexiscan infusion induced EKG changes of ischemia. 2. Lexiscan stress test test is negative for Lexiscan infusion induced chest pain. 3. Results of the nuclear portion of the test is as below Myocardial perfusion imaging study: Technique: The patient was injected with 11.8 millicuries of technetium 99m Cardiolite and subsequently rest SPECT Cardiolite nuclear imaging was obtained in the horizontal long, vertical long, and short axis views. The patient underwent pharmacologic [Regadenoson 0.4mg] evaluation. Please see above for details. The patient was injected with 35.1 millicuries of technetium 99m Cardiolite and subsequently stress SPECT Cardiolite nuclear imaging was obtained in the horizontal long, vertical long, and short axis views. A gated Cardiolite study at peak stress was obtained. Interpretation: Rest and stress SPECT Cardiolite nuclear imaging status post realignment, normalization, and attenuation correction demonstrate overall normal myocardial radioisotope uptake after attenuation correction. Gated images reveal inferior hypokinesis that is likely an artifact due to extracardiac uptake. The reported LVEF is 66%. Impression: 1. There is no evidence of significant ischemia. 2. Estimated ejection fraction is 66%. This note was generated with [employer] software. It may contain incorrect words, spelling, and punctuation that were not noted in checking the note before signing.
[2023-05-25 15:58] VITALS: BP 143/57; PULSE 73; RESP 16; TEMP 37.1; O2SAT 98
[2023-05-25 20:08] VITALS: BP 146/63; PULSE 81; RESP 18; TEMP 36.8; O2SAT 97
[2023-05-25] MEDS: Nortriptyline 25 MG Capsule PO (20:15)
[2023-05-26 02:03] VITALS: BP 139/62; PULSE 70; RESP 18; TEMP 37; O2SAT 94
[2023-05-26 04:47] VITALS: BMI 35.1
[2023-05-26 06:12] LABS: Absolute Lymphocyte Count 0.99 X10^3/uL (0.83-4.51); Absolute Neutrophil Count 6.3 X10^3/uL (2.0-7.7); Basophil# 0.11 X10^3/uL; Basophil% 1.2 % (0-1); Eosinophil# 0.26 X10^3/uL; Eosinophils% 2.8 % (0-5); Hematocrit 46.1 % (37-47); Hemoglobin 15.2 g/dL (12.0-15.0); Lymphocyte # 0.99 X10^3/ul (0.83-4.51); Lymphocyte % 10.8 % (19-41); Mean Corpuscular Hgb 28.2 pg (27.0-32.0); Mean Corpuscular Volume 85.5 fL (81-99); Monocyte# 1.46 X10^3/uL; NRBC Flagged by Analyzer 0 % (0-5); Neutrophil # 6.25 X10^3/uL (2.7-7.7); Neutrophil % 68.5 % (47-70); Platelet Count 263 K/mm3 (150-450); RBC Distribution Width CV 13.6 % (11.6-14.6); RBC Distribution Width SD 42.1 fl (35.1-43.9); Red Blood Count 5.39 M/mm3 (4.2-5.4); White Blood Count 9.1 K/mm3 (4.4-11.0)
[2023-05-26 06:15] VITALS: BP 131/53; PULSE 68; RESP 18; TEMP 36.6; O2SAT 95
[2023-05-26 06:45] LABS: Anion Gap 7 (5-15); BUN 14 mg/dL (7-18); Calcium,Total 8.5 mg/dL (8.5-10.1); Chloride 100 mmol/L (98-107); Creatinine, Serum 0.93 mg/dL (0.55-1.02); EST Glomerular Filtration Rate 61 mL/min (>60); Est Glom Filt Rate - Afr Amer 74 mL/min (>60); Estimated Creatinine Clearance 36.41 ml/min; Glucose 100 mg/dL (74-106); Potassium 3.7 mmol/L (3.5-5.1); Sodium Level 131 mmol/L (136-145)
[2023-05-26 06:57] LABS: ALB/GLOB Ratio 0.7 RATIO (0.9-2.4); Globulin 3.8 g/dL (2.2-4.2); LDH 158 U/L (84-246); Protein, Total 6.4 g/dL (6.4-8.2)
[2023-05-26 07:36] VITALS: O2SAT 92
[2023-05-26 08:15] VITALS: BP 132/53; PULSE 71; RESP 16; TEMP 37; O2SAT 95
[2023-05-26] MEDS: Aspirin 81 MG TAB.CHEW PO (08:18)
[2023-05-26] MEDS: NIFEdipine 60 MG Tablet PO (08:19)
[2023-05-26] MEDS: Atenolol 25 MG Tablet 37.5 MG PO (08:19)
[2023-05-26 13:00] VITALS: BP 137/55; PULSE 78; RESP 18; TEMP 37.1; O2SAT 95
--- NOTE | 2023-05-26 14:52 | DS.PCM_ITS ---
Providers Date of Admission: 05/24/23 Date of Discharge: 05/26/23 Primary Care Physician: Dr. Evangelina Vaughan MD Consultations 05/25/23 07:00 Consult: [facility] Intern / Pulmonary Medicine Routine Consulting Provider: Bobby Fisher Reason for Consult: Recurrent dyspnea, L effusion, sent in per Pulmonary office. EMERGENT Consult: No MD Notified: Yes Date Notified: 05/24/23 Time Notified: 06:29 Method of Notification: Text Reason For Visit: DYSPNEA, CHEST TIGHTNESS Diagnosis Discharge Diagnosis (1) Chest pain: Status: Acute Code(s): R07.9 - Chest pain, unspecified Qualifiers: Chest pain type: unspecified Qualified Code(s): R07.9 - Chest pain, unspecified (2) Pleural effusion: Status: Acute Code(s): J90 - Pleural effusion, not elsewhere classified (3) Elevated troponin: Status: Acute Code(s): R77.8 - Other specified abnormalities of plasma proteins Plan: #Chest pain * also has recurrent layering moderate left sided pleural effusion s/p recent thoracentesis. * cardiac enzymes were elevated, with initial troponin of 120, which trended down to 94. * for stress test today * #Recurrent pleural effusion * has had thoracentesis previously, cytology of which was negative for malignancy * pulmonology on board. She may need repeat thoracentesis again during this stay * sputum culture and respiratory panel pending * wbc not elevated so antibiotics deferred. * #Hypertension; on spironolactone, nifedipine and atenolol. #Anxiety and depression; on nortryptiline #History of breast cancer: s/p right breast lumpectomy, and s/p chemo and radiation. Follow up with oncology on outpatient basis #Hyperlipidemia:cholesterol elevated at 218 and LDL of 141 as well as VLDL of 17. #Hypothyroidism: on synthroid DVT prophylaxis: SCDs. Medications at Discharge Home Medications atenolol 25 mg tablet (Tenormin) 37.5 mg PO BID blood pressure 08/13/16 clorazepate dipotassium 7.5 mg tablet 0.5 tab PO QHS PRN Sleep 08/13/16 levothyroxine 75 mcg tablet (Levoxyl) 75 mcg PO MOTUTHFRSA 08/13/16 nifedipine 60 mg tablet,extended release 24 hr 60 mg PO BID heart 08/13/16 nortriptyline 25 mg capsule 25 mg PO QHS sleep 08/13/16 nystatin 100,000 unit/gram topical powder (Nyamyc) 1 applic topical PRN PRN SKIN IRRITATION 08/13/16 potassium chloride 10 mEq tablet,extended release(part/cryst) 10 meq PO UD supplement 11/15/16 calcium carb,cit ER 600 mg-vit D3 12.5 mcg (500 unit) tablet,ext.rel (Citracal- D3 Slow Release) 1 tab PO DAILY supplement 05/09/23 cholecalciferol (vitamin D3) 50 mcg (2,000 unit) tablet (Vitamin D3) 2,000 unit PO DAILY supplement 05/09/23 spironolactone 25 mg tablet 25 mg PO .COMPLEX diuretic 05/09/23 siac-vseetcwyx-badsgrgwiqqsi-aldioxa topical powder 1 ea topical QHS PRN PRN rash under breasts 05/09/23 transfor factor See Rx Instructions PO DAILY supplement 05/09/23 Hospital Course Operations None Procedures Stress test Summary of Care Provided Minutes Spent on Discharge: 55 Hospital Course: Patient is an 82-year-old female with a past medical history as outlined was admitted through the ED on 05/24/2023 with a complaint of recurrent shortness of breath which was worsened by exertion. She had assisted nonproductive cough and reported chills with no fever as well as chest tightness that gradually been worsening. Patient had recently been seen in April 2023 for large left-sided pleural effusion with mediastinal shift. She had thoracentesis done and pathology was negative for malignancy. On admission this time, chest x-ray showed chronic appearing layering moderate pleural effusion with basilar atelectasis. EKG showed no acute ST changes and troponins were not elevated. She was admitted to be managed for chest pain to rule out ACS. She had a stress test on 05/25/2023 which was negative for any evidence of ischemia. Pulmonology was also consulted in light of the pleural effusion. Patient remained on room air during admission. Pulmonology reviewed patient and stated that patient had also been noted to have a lung nodule per chest CT done during previous admission. It was recommended that patient have a biopsy of the right lung nodule as well as thoracentesis. This was recommended to patient and family. Because she was on room air and had remained stable, pulmonology recommended that this could be done on outpatient basis if patient preferred. Patient and her family were okay with her doing the lung nodule biopsy as well as a thoracentesis on outpatient basis. She was therefore discharged on 05/26/2023 and is to follow-up with her primary care doctor and pulmonology within 1 week. Patient was seen and examined prior to discharge. Her daughter was by her bedside. She had no active complaints and denied any shortness of breath, chest pain, palpitations, dizziness or any other symptoms. Review of systems otherwise negative. Labs and vitals reviewed. Home medication reviewed and reconciled. Physical Exam Const alert, oriented x3 and no apparent distress General Appearance: cooperative and comfortable HEENT normocephalic, head/scalp atraumatic, hearing grossly normal bilaterally, moist oral mucous membranes and oropharynx normal Mouth: oral and palatal mucosa normal Eyes PERRL, EOMs intact bilaterally and conjunctivae normal Neck no lymphadenopathy and supple Lymph Lymphatic: no lymphadenopathy noted and no lymphedema noted Resp Resp Narrative: diminished breath sounds bibasally, no wheezes or crackles. on room air. Cardio regular rate, regular rhythm, S1 normal heart sound, S2 normal heart sound and n o murmurs GI normal to inspection, nondistended, normoactive bowel sounds, soft to palpation, non-tender and non-distended Extremity normal to inspection, full ROM, normal capillary refill, no clubbing, cyanosis or edema and no calf tenderness Skin no rashes or lesions noted, no wounds and skin turgor normal General Skin Exam: no breakdown Neuro oriented x3, CN's II-XII intact bilaterally, moves all extremities, no focal motor deficits, no sensory deficits noted and deep tendon reflexes 2+ bilaterally Motor Exam: strength 5/5 throughout Psych thought process normal, cooperative and affect normal Appearance: appropriate Medical Records Data Medical Nutrition Assessment Dietitian: Malnutrition Criteria Met Start: 05/25/23 19:04 Freq: Status: Active Protocol: Document 05/25/23 19:04 BALA (Rec: 05/25/23 19:05 [facility] [id number]) Nutrition Malnutrition Evidence of Malnutrition Exists Yes Malnutrition (moderate): Acute Illness/Injury Evidenced By Weight Loss (Severe),Physical Changes (Mild) Clinical Problem Acute Disease or Injury Related Malnutrition Etiology related to physiological changes decreasing oral intakes Signs/Symptoms as evidenced by significant weight loss of 6.6% in ~2 weeks as well as mild increase in fluid accumulation via lower extremity edema. Status Active Problem Recommendation Dietitian Recommendations/Changes Continue with Cardiac diet for admission reason. Pt not interested in ONS use, yet family has been bringing in food for the pt to encourage oral intakes. Will continue to monitor oral intakes and provide education and interventions as needed. Weight / BMI Weight Weight: 185 lb 13.595 oz Body Mass Index (BMI) 35.1 ABG / Lab / Microbiology Data 05/26/23 05:50 05/26/23 05:50 Laboratory: Laboratory Results - last 24 hr 05/26/23 05:50: WBC 9.1, RBC 5.39, Hgb 15.2 H, Hct 46.1, MCV 85.5, MCH 28.2, MCHC 33.0, RDW Std Deviation 42.1, RDW Coeff of Mariaelena 13.6, Plt Count 263, MPV 9.0, Immature Gran % (Auto) 0.700, Neut % (Auto) 68.5, Lymph % (Auto) 10.8 L, [place] % (Auto) 16.0 H, Eos % (Auto) 2.8, Baso % (Auto) 1.2 H, Absolute Neuts (auto) 6.3, Absolute Lymphs (auto) 0.99, Nucleated RBC % 0, Sodium 131 L, Potassium 3.7, Chloride 100, Carbon Dioxide 24.0, Anion Gap 7, BUN 14, Creatinine 0.93, Estim Creat Clear Calc 36.41, Est GFR (MDRD) Af Amer 74, Est GFR (MDRD) Non-Af 61, BUN/Creatinine Ratio 15.0, Glucose 100, Calcium 8.5, Lactate Dehydrogenase 158, Total Protein 6.4, Globulin 3.8, Albumin/Globulin Ratio 0.7 L Microbiology: Microbiology 05/25/23 01:50 Mucosa - Nasopharyngeal Respiratory Panel (PCR) - Final 05/25/23 02:12 Urine, Clean Catch Streptococcus pneumoniae Antigen (M - Final 05/25/23 02:12 Urine, Clean Catch Legionella Antigen - Final D/C Instructions Discharge Diet: Low fat / Low cholesterol Discharge Activity: Return to Normal Activity Weight Bearing Status: Weight bearing as tolerated Call your doctor if you observe: Fever of 101 or Higher, Shortness of breath, Dizziness, Swelling in the ankles, Chest pain and Increased palpitations (irregular heartbeat) Meaningful Use Info Meaningful Use Diagnoses (Choose all that apply): None applicable Discharge Plan Admission Admit Date/Time: 05/24/23 21:45 Attending Provider: Marivel Kwan Primary Care Provider: Evangelina Vaughan Consulting Providers: Bobby Fisher; Tamiko Villagomez Instructions Patient Instructions: Pleural Effusion, ED Chest Pain, Noncardiac, ED Chest Pain, Uncertain Cause, ED Pleural Effusion Discharge Orders/Prescriptions Prescriptions: Continued atenolol [Tenormin] 25 MG tablet 37.5 mg PO BID Patient Comments: heart levothyroxine [Levoxyl] 75 MCG tablet 75 mcg PO MOTUTHFRSA Patient Comments: thyroid nortriptyline 25 MG capsule 25 mg PO QHS nifedipine 60 MG tablet 60 mg PO BID Patient Comments: blood pressure nystatin [Nyamyc] 1 APPLIC bottle 1 applic topical PRN PRN (Reason: SKIN IRRITATION) clorazepate dipotassium 7.5 MG tablet 0.5 tab PO QHS PRN (Reason: Sleep) Patient Comments: antidepressent potassium chloride 10 MEQ tablet 10 meq PO UD transfor factor See Rx Instructions PO DAILY Patient Comments: 4 life gets it from Rx Instructions: 1 cap daily orally daily; takes one a day orally; spironolactone 25 mg tablet 25 mg PO .COMPLEX Patient Comments: TAKE ONE TABLET BY MOUTH THREE TIMES PER WEEK ON SATURDAY, SATURDAY, SATURDAY Rx Instructions: 25 mg orally three times a week sat; stil-eptgrtxmz-dygsgrbu-aldiox Powder 1 ea topical QHS PRN PRN (Reason: rash under breasts) cholecalciferol (vitamin D3) [Vitamin D3] 50 mcg (2,000 unit) tablet 2,000 unit PO DAILY calcium carb and citrate-vitD3 [Citracal-D3 Slow Release] 600 mg-12.5 mcg (500 unit) tablet extended release 1 tab PO DAILY Referrals / Follow Up: Bobby Fisher DO [Med Staff - Active Staff] - Within 1 Week Evangelina Vaughan MD [Primary Care Provider] - Within 2 Weeks Disposition Disposition (needs filled in before D/C Order can be placed): Home, Self Care Charges/Coding Visit Charges Inpatient E&M: 79446 Disch Hosp >30min
[2023-05-27 14:08] LABS: CCP IgG Antibodies 0 units (0-19); Cytoplasmic Ab (C-ANCA) <1:20 titer (Neg:<1:20); Perinuclear Ab (P-ANCA) <1:20 titer (Neg:<1:20)
[2023-05-27 15:07] LABS: ANTINUCLEAR ANTIBODIES DIRECT Negative (Negative)
== END 2023-05-26 18:12 | disposition home or self-care (01) ==
LOC: ED 19:05 → PCU 22:25
PROVIDERS: Internal Medicine Critical Care Medicine; Admitting Provider Family Medicine; Emergency Provider Emergency Medicine; PCP Internal Medicine; Visit Provider Student in an Organized Health Care Education/Training Program
DX: R07.89 Other chest pain (principal); J90 Pleural effusion, not elsewhere classified; R77.8 Other specified abnormalities of plasma proteins; I10 Essential (primary) hypertension; R91.1 Solitary pulmonary nodule; J98.11 Atelectasis; H91.90 Unspecified hearing loss, unspecified ear; F41.9 Anxiety disorder, unspecified; F32.A Depression, unspecified; E03.9 Hypothyroidism, unspecified; E78.5 Hyperlipidemia, unspecified; Z79.899 Other long term (current) drug therapy; Z79.890 Hormone replacement therapy; E66.9 Obesity, unspecified; Z68.35 Body mass index [BMI] 35.0-35.9, adult
CPT/HCPCS: 36415; 71046; 78452; 80048; 80053; 80061; 83615; 83735; 84145; 84156; 84484; 85025; 86038; 86200; 86225; 86235; 86256; 86431; 87449; 87633; 93005; 93017; 94668; 97802; 99221; 99283; A9500; A4216; G0378; J2785

== ENCOUNTER → 2023-06-03 | Outpatient (CLI) | payer OTHER, SELFPAY ==
--- NOTE | 2023-06-03 | IMM_PTH ---
PATIENT: RUI PATTERSON LOC: U#:[id number] AGE/SX: 82/F ROOM: RE06/03/[address]: VÍCTOR Ravi : 1940 BED: DIS: 06/03/2023 SPEC #: [id number] RECD: 06/04/23 14:08 STATUS: CHACE REQ #: [id number] CRISTINA: 06/03/23 00:[address]: Rowan Schmidt NP DEPT: IMMUNOHISTOCHEMISTRY RECD BY: Marley Reese ENTERED: 06/04/23 14:09 SP TYPE: IMMUNO OTHR DR: Dr. Evangelina Vaughan MD Tissues: THORACIC FLUID Procedures: BCL-2 (add) BCL-6 (add) CD20 (add) CD3 (add) CD45 (add) CD5 (add) CD79A (add) KI-67 (add) Pankeratin (initial) PHYSICIAN [facility] INSTIT[facility] [address] [address] SPECIMEN INFORMATION: Tissue Source: Thoracentesis fluid Clinical Info: Left pleural effusion Specimen Number: [id number] CPT code: 36039, 34962 x8 METHODOLOGY: Deparaffinized sections of prefer/formalin-fixed tissue or PAP/DQ stained slides are incubated with monoclonal/polyclonal antibodies/oligonucleotide probes. Localization is made via biotin free immunoperoxidase method. Appropriate controls are performed and reacted as expected. Results on target cell population are indicated in the following table: RESULTS: ANTIBODY / CLONE RESULT AE1-3 (AE1/AE3/PCK26) negative CD3 (PS1) positive CD5 (SP10) positive CD20 (L26) positive CD45 (RP2/18) positive CD79a (11E3) positive BCL-2 (bcl-2/100/D5) positive BCL-6 (BS711Y/A8) negative Ki-67 (30-9) negative These tests were developed and their performance characteristics determined by [facility]. They may not have been cleared or approved by the U.S. Food and Drug Administration. The FDA has determined that such clearance or approval is not necessary. The above immunohistochemical/dualISH markers are ordered and reviewed by the Pathologist. INTERPRETATION: Thoracentesis (cell block): - No evidence of lymphoproliferative disorder AM:ja 06/05/23
--- NOTE | 2023-06-03 | FLU_PTH ---
PATIENT: RUI PATTERSON LOC: U#:[id number] AGE/SX: 82/F ROOM: RE06/03/[address]: VÍCTOR Ravi : 1940 BED: DIS: 06/03/2023 SPEC #: [id number] RECD: 06/03/23 09:58 STATUS: CHACE MENDOZA #: [id number] CRISTINA: 06/03/23 00:[address]: Rowan Schmidt NP DEPT: CYTOLOGY RECD BY: Ramy Horn ENTERED: 06/03/23 09:59 SP TYPE: Fluid OTHR DR: Dr. Evangelina Vaughan MD Tissues: THORACIC FLUID Procedures: Special Stain Group II Surgery Specimen Level IV Cytospin Fluid HEADER OPERATION: Ultrasound-guided thoracentesis PRE-OP DIAGNOSIS: Left pleural effusion TISSUE SUBMITTED: Thoracentesis fluid for cytology DIAGNOSIS CYTOLOGY Thoracentesis fluid for cytology (cytospin and cell block): Polymorphous lymphocytes present. See comment. AM:venkat 06/04/2023 COMMENT Immunohistochemistry ([id number]) supports the above diagnosis. CYTOLOGY STUDY Slides are reviewed. CYTOLOGY GROSS Received is 80 ml of yellow cloudy fluid labeled with the patient's name and and designated per the requisition as thoracentesis. Submitted for cytology preparation including cell block. / venkat 06/03/2023 TC:5 CPT: 03734, 11534
--- NOTE | 2023-06-03 08:00 | US_ITS ---
PROCEDURE: ULTRASOUND GUIDED THORACENTESIS. DATE: 06/03/2023. INDICATION: Female, 82 years old. Left pleural effusion. PHYSICIAN: Bakari Israel DO PROCEDURE: The risks, benefits, and alternatives to the procedure were explained to the patient. The specific risks of bleeding, infection, and pneumothorax requiring chest tube insertion were discussed and accepted. Written informed consent was obtained. Ultrasonographic evaluation of the left lower pleural space was carried out. An adequate pocket was identified. The patient was placed in the sitting, upright position. The overlying skin was prepped and draped in sterile fashion. 1% lidocaine was administered subcutaneously for local anesthesia. Under ultrasound guidance, a 5 Turk[place] thoracentesis needle/catheter system was advanced into the left posterior lower pleural fluid collection. Approximately 560 mL of straw-colored clear fluid was drained. The catheter was removed, and a sterile dressing was applied. A 100 cc sample was collected and sent to the laboratory for analysis, as requested by the referring clinician. The patient tolerated the procedure well. A chest x-ray was ordered which demonstrated no post thoracentesis pneumothorax. The patient was discharged home in stable condition. US/Thoracentesis W US IMPRESSION: Ultrasound-guided diagnostic and therapeutic left thoracentesis. Electronically Signed: Bakari Israel DO at 9:39 EDT ,
[2023-06-03 08:12] VITALS: BP 141/60; BP 144/64; BP 147/53; BP 147/59; BP 147/65; BP 154/63; PULSE 61; PULSE 64; PULSE 65; PULSE 67; RESP 16; TEMP 36.4; O2SAT 97; O2SAT 98
--- NOTE | 2023-06-03 08:38 | RAD_ITS ---
INDICATION: immediately post thoracentesis EXAMINATION/TECHNIQUE: X-RAY - XR Chest 2 Views COMPARISON: Chest x-ray from 05/24/2023. CT chest without contrast from 05/10/2023. FINDINGS: Support devices: None. Trace residual left sided pleural effusion and left basilar atelectasis status post thoracentesis. No sizable pneumothorax. Stable spiculated nodule in the left upper lobe. Heart size is stable. Bones and soft tissues are unchanged. RAD/Chest Insp/Exp 2 View IMPRESSION: No sizable pneumothorax status post left-sided thoracentesis. Electronically Signed: Bakari Israel DO at 9:02 EDT ,
[2023-06-03 09:05] LABS: Cytology, Body Fluid / CSF SEE PATHOLOGY REPORT
[2023-06-03 09:42] LABS: Body Fluid Mononuclear WBC # 0.683 10^3/uL; Body Fluid Mononuclear WBC % 90.5 %; Body Fluid Polynuclear WBC # 0.072 10^3/uL; Body Fluid Polynuclear WBC % 9.5 %; Body Fluid Total Cells Counted 0.761 10^3/ul; White Blood Count/Body Fluid 0.755 10^3/uL
[2023-06-03 09:50] LABS: LDH,Body Fluid 137 Units/L (Not Establ.)
[2023-06-03 10:05] LABS: Appearance/Body Fluid CLEAR; Auto B Fluid Analyzer BKGD Ct COUNTS W/IN LIMITS (W/IN LIMITS); Color/Body Fluid YELLOW; Source- Body Fluid THORACENTESIS
[2023-06-03 11:47] LABS: Red Cell Count/Body Fluid 77 /mm3
[2023-06-03 12:34] LABS: Lymphocytes 83 %; Mesothelial Cells 1 %; Monocytes 4 %; Neutrophil (Segs) 12 %
[2023-06-03 12:35] LABS: Body Fluid QC Type(s) BF1Q
[2023-06-05 07:38] LABS: Pathologist Comment/Body Fluid Reviewed
== END | disposition home or self-care (01) ==
PROVIDERS: PCP Internal Medicine; Referring Provider Nurse Practitioner Acute Care; Visit Provider Nurse Practitioner Acute Care
DX: J90 Pleural effusion, not elsewhere classified (principal)
CPT/HCPCS: 32555; 71046; 83615; 84157; 87070; 87075; 87205; 88108; 88305; 88313; 88341; 88342; 89050

== ENCOUNTER → 2023-06-14 | Outpatient (CLI) | payer OTHER, SELFPAY ==
[2023-06-14] VITALS (11 sets, daily range): BP systolic 126–172; BP diastolic 52–86; PULSE 64–80; RESP 16–22; TEMP 36.2; O2SAT 94–100; BMI 36.1
--- NOTE | 2023-06-14 | IMM_PTH ---
PATIENT: RUI PATTERSON LOC: CT U#:[id number] AGE/SX: 83/F ROOM: RE06/14/[address]: VÍCTOR Ravi : 1940 BED: DIS: 06/14/2023 SPEC #: [id number] RECD: 06/18/23 12:27 STATUS: CHACE REMaritza #: [id number] CRISTINA: 06/14/23 00:[address]: Rowan Schmidt NP DEPT: IMMUNOHISTOCHEMISTRY RECD BY: Marley Reese ENTERED: 06/18/23 12:29 SP TYPE: IMMUNO OTHR DR: Dr. Evangelina Vaughan MD Tissues: Left upper lobe of lung, NOS Procedures: RCC (add) NAPSIN A (add) CK20 (add) CK5-6 (add) CK7 (add) CK8 (add) E-CAD (add) ER (add) HEP PAR (add) HER2 CHRYSTAL (add) MAMM (add) PA (add) TTF1 (add) Pankeratin (initial) GATA3 (add) P40 (add) PHYSICIAN & [address] [address] SPECIMEN INFORMATION: Tissue Source: Left upper lobe lung mass Clinical Info: Left upper lobe lung mass Specimen Number: [id number] CPT code: 87128, 57508 x15 METHODOLOGY: Deparaffinized sections of prefer/formalin-fixed tissue or PAP/DQ stained slides are incubated with monoclonal/polyclonal antibodies/oligonucleotide probes. Localization is made via biotin free immunoperoxidase method. Appropriate controls are performed and reacted as expected. Results on target cell population are indicated in the following table: RESULTS: ANTIBODY / CLONE RESULT ER (6F11) positive PA (1E2) positive AE1-3 (AE1/AE3/PCK26) positive CK7 (OV-TL12/30) positive CK8 (87qxmjE60) positive CK20 (KS20.8) negative TTF-1 (8G7G3/1) negative Napsin A (Rabbit Polyclonal) negative HepPar (OCh1E5) negative RCC (PN-15) negative CK5-6 (D5 & 1684) negative P40 (BC28) negative GATA3 (L50-823) positive Mammaglobin (31A5) positive E-Cad (ECH-6) positive These tests were developed and their performance characteristics determined by [facility]. They may not have been cleared or approved by the U.[place]. Food and Drug Administration. The FDA has determined that such clearance or approval is not necessary. The above immunohistochemical/dualISH markers are ordered and reviewed by the Pathologist. INTERPRETATION: Left upper lobe lung mass, CT-guided core biopsy: Non-small cell carcinoma, favor metastatic adenocarcinoma, consistent with breast primary (ductal carcinoma). See comment. SJ:rg 06/19/2023 Comment: Clinical correlation is necessary. Case has been reviewed in consultation with Dr. Kumar who concurs with the above diagnosis. IDC:AM ADDENDUM ADDENDUM ADDENDUM ADDENDUM ADDENDUM ADDENDUM ADDENDUM ADDENDUM ADDENDUM ADDENDUM ADDENDUM ADDENDUM ADDENDUM ADDENDUM 07/08/2023 13:49 ADDENDUM 07/08/2023 13:49 ADDENDUM 07/08/2023 13:49 ADDENDUM 07/08/2023 13:49 ADDENDUM 07/08/2023 13:49 ANTIBODY / CLONE RESULT Her-2neu (CB11) noncontributory The above immunohistochemical/dualISH marker is ordered by Dr. Draper and reviewed by the pathologist. Block is exhausted. No tumor is present in the block, consisting of only scant fragments of benign lung parenchymal tissue. SJ:rg 07/08/2023 Case has been reviewed in consultation with Dr. Kumar who concurs with the above diagnosis. IDC:AM
[2023-06-14 08:58] LABS: Platelet Count 335 K/mm3 (150-450)
[2023-06-14 09:12] LABS: ALB/GLOB Ratio 0.8 RATIO (0.9-2.4); Globulin 4.2 g/dL (2.2-4.2); LDH 216 U/L (84-246); Partial Thromboplast Time 32.2 Seconds (24.1-36.2); Protein, Total 7.5 g/dL (6.4-8.2)
--- NOTE | 2023-06-14 10:00 | CT_ITS ---
PROCEDURE: CT GUIDED CORE NEEDLE BIOPSY OF A left upper lobe LUNG LESION INDICATION: Female, 83 years old. [facility] GURJIT PHYSICIAN: Dr. Ryan Brown CONSENT: Written informed consent was obtained having explained the risks, benefits and alternatives in detail with the patient who accepted the risks and agreed to proceed. Laboratory review and clinical assessment was performed. CONSCIOUS SEDATION PROTOCOL: The Drugs used were: 1 mg Versed, IV., and 25 mcg Fentanyl, IV. The sedation time was: 30 minutes. Conscious sedation was started at 10:02 AM and terminated at 10:32 AM. The conscious sedation protocol was independently monitored. RADIATION DOSAGE (If Supplied By Facility): CTDIvol = ( 18.99 ) mGy, DLP = ( 527.29 ) mGycm Individualized dose optimization techniques were used for this CT. TECHNIQUE: The patient was placed in the supine position. A noncontrast CT was performed to localize the lesion in the left lung apex . The skin surface was prepped and draped in a sterile fashion. 1% lidocaine was used for local anesthesia. Using CT guidance, a 20-gauge coaxial biopsy device was advanced to the periphery of the lesion. A total of 3 core specimens were obtained. The specimens were placed in a formalin solution. A post procedure CT demonstrated no adverse sequelae or pneumothorax. The patient tolerated the procedure well without adverse event. A negative biopsy does not exclude malignancy. Further imaging or clinical followup based on patient condition and degree of clinical suspicion for malignancy. Suggest rebiopsy, if biopsy results do not match with clinical scenario. CT/Biopsy/Inj or Needle Placement IMPRESSION: 1. CT directed core needle biopsy of the left upper lobe pulmonary nodule using CT image guidance with image documentation as described. Pathology results are pending. 2. Conscious Sedation protocol utilized with independent monitoring. Electronically Signed: Geovanny Davis MD at 11:18 EDT ,
[2023-06-14] MEDS: Midazolam 2 MG/2 ML Syringe IV (10:02)
[2023-06-14] MEDS: fentaNYL 100 MCG/2 ML Ampul IV (10:04)
[2023-06-14] MEDS: Lidocaine 2% (20 ml mdv) 20 ML Vial INFILT (10:16)
--- NOTE | 2023-06-14 10:30 | ASPIGT_PTH ---
PATIENT: RUI PATTERSON LOC: CT U#:[id number] AGE/SX: 83/F ROOM: RE06/14/[address]: VÍCTOR Ravi : 1940 BED: DIS: 06/14/2023 SPEC #: [id number] RECD: 06/14/23 10:49 STATUS: CHACE REMaritza #: [id number] CRISTINA: 06/14/23 10:[address]: Rowan Schmidt NP DEPT: SURGICAL PATHOLOGY RECD BY: Trice Ojeda ENTERED: 06/14/23 10:49 SP TYPE: ASP RAD OTHR DR: Dr. Evangelina Vaughan MD Tissues: Lung, NOS Procedures: FNA Specimen Adequacy Special Stain Group II Surgery Specimen Level IV Imprint (control) HEADER OPERATION: Left lung mass PRE-OP DIAGNOSIS: Left upper lobe lung mass TISSUE SUBMITTED: Left upper lobe lung mass 20-gauge x3 MICROSCOPIC DIAGNOSIS Left upper lobe lung mass, CT-guided core biopsy: Non-small cell carcinoma, favor metastatic adenocarcinoma, consistent with breast primary (ductal carcinoma). See comment. RAIN:venkat 06/19/2023 COMMENT The specimen is evaluated at the time of biopsy by Dr. eL. Immediate Evaluation = Mildly atypical cells noted. Correlation with clinical, radiologic findings and appropriate follow up are necessary. Immunohistochemistry ([id number]) supports the above diagnosis. Specimen consists of a minute focus of tumor. 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 Case has been reviewed in consultation with Dr. Kumar who concurs with the above diagnosis. IDC:AM MICROSCOPIC DESCRIPTION Slides are reviewed. GROSS DESCRIPTION Received in fixative is one container labeled with the patient's name and designated left upper lobe lung mass. The specimen consists of multiple irregular fragments of sanderson soft tissue that in aggregate measure 0.2 x 0.1 x <0.1 cm. The specimen is totally submitted in one cassette. Two touch imprints are prepared at the time of core biopsy. / RAIN:venkat 06/14/2023 TC:0 CPT: 11839, 83684
--- NOTE | 2023-06-14 10:45 | RAD_ITS ---
STUDY: X-RAY CHEST REASON FOR EXAM: Female, 83 years old. LUNG BIOPSY -- Immediately post lung biopsy TECHNIQUE: AP inspiration and expiration views. COMPARISON: Comparison is made with prior study June 03, 2023. FINDINGS: EKG electrodes are seen. No evidence of pneumothorax on the immediate post left lung biopsy radiographs. RAD/Chest Insp/Exp 2 View IMPRESSION: No evidence of pneumothorax on the immediate post left lung biopsy radiographs. Electronically Signed: Geovanny Davis MD at 12:39 EDT ,
--- NOTE | 2023-06-14 12:25 | RAD_ITS ---
STUDY: X-RAY CHEST REASON FOR EXAM: Female, 83 years old. LUNG BIOPSY -- 2 hours post lung biopsy TECHNIQUE: AP inspiration and expiration views. COMPARISON: Comparison is made with prior study done earlier today. FINDINGS: No evidence of pneumothorax on the 2 hour post left lung biopsy radiographs. RAD/Chest Insp/Exp 2 View IMPRESSION: No evidence of pneumothorax on the two-hour post left lung biopsy radiographs. Electronically Signed: Geovanny Davis MD at 13:13 EDT ,
== END | disposition home or self-care (01) ==
LOC: CT 08:37
PROVIDERS: PCP Internal Medicine; Referring Provider Nurse Practitioner Acute Care; Visit Provider Nurse Practitioner Acute Care
DX: Z01.818 Encounter for other preprocedural examination (principal); R91.8 Other nonspecific abnormal finding of lung field; J90 Pleural effusion, not elsewhere classified
CPT/HCPCS: 32408; 36415; 71046; 77012; 83615; 84156; 85049; 85610; 85730; 88172; 88305; 88313; 88341; 88342; 99156; 99157; J7050; A4216; C2613